=== PATIENT | female | born 1975 | race Caucasian/White ===

== ENCOUNTER 2021-10-14 15:06 | Emergency (ER) | payer BC, SELFPAY ==
--- NOTE | 2021-10-14 15:00 | RT.EKG_ITS ---
APPROVED REPORT Exam: Resting ECG Reason for Exam: chest pain Patient Location: E HR:108 bpm ECG Measurements Heart Rate 108 AXIS NC 137 P 78 QRSd 89 QRS 76 QT 324 T 63 QTc 436 Conclusion Sinus tachycardia...rate> 99. Sinus. No STEMI. I have reviewed and interpreted ECG and agree with software generated interpretation.
--- NOTE | 2021-10-14 15:09 | W.ED.GENAD ---
Discharge Plan Disposition Patient Disposition: HOME Condition: Improving Discharge Details Clinical Impression: Right-sided chest pain Primary Care Provider: Unknown,Unknown ED Provider: Chantelle Delgado Home Meds and New Rx's Prescriptions: Continued lidocaine 5 % Cream 1 applic TOPICAL DAILY RF: 0 loratadine [Claritin] 10 mg Tablet 10 mg PO DAILY RF: 0 fluticasone furoate 27.5 mcg/actuation [place],Suspension 2 spray INTRANASAL DAILY RF: 0 Discharge Instructions Instructions: Chest Pain (ED) Additional Instructions: Drink plenty of fluids and get plenty of rest. Alternate tylenol and motrin as needed and directed for pain. You have been placed on care management list to help arrange for a follow-up appointment with a primary care doctor to establish care and for reevaluation of your symptoms. Return immediately to the emergency department if you develop any worsening or new concerning symptoms. Discharge Data Discharge Physician: Chantelle Delgado Medical Decision Making 45-year-old female presents for a 20-minute episode of aching right-sided chest pain yesterday and a brief episode of fluttering in the left side of her chest that occurred 2 weeks ago. No symptoms at present. EKG on arrival notes a rate of 108, sinus, no STEMI and nondiagnostic. Patient appears anxious. She denies any other associated symptoms during either the episode. She denies any recent illness or fever. She does admit to dyspnea with walking uphill over the past month for moving to [place] but states she is used to flat land and she just moved from [place]. Differential diagnosis includes anxiety, muscle strain, PE, ACS. History and presentation is not consistent with dissection. Will place an IV, bolus IV fluids, screening labs, CT chest and reassess. Labs and imaging reviewed and negative for acute findings. Potassium 3.3, will replete. Troponin negative. TSH within normal limits. CT chest negative for PE. CT chest notes: IMPRESSION: 1. No evidence of acute pulmonary emboli. No evidence of pulmonary infarction.No pleural effusions. 2. No confluent infiltrates nor pleural effusions. However, there are 2 small nodules right lung as described above. Recommend follow-up CT scan in 3 months. Patient informed of results. She is agreeable to stay for repeat troponin. Repeat troponin negative. Patient reassessed and she remains asymptomatic. Patient placed on care management list to help arrange for a follow-up appointment with the primary care doctor to establish care and for reevaluation and consideration for outpatient echocardiogram or registered nurse cardiac if she has return of fluttering or consideration for stress test if chest pain returns. Usual and customary return precautions given prior to discharge. Medical Records Medical records reviewed: Yes I reviewed the patient's medical records. Imaging Data Radiologic Study: Radiologist's impression: CT CHEST PE CTA CLINICAL HISTORY: episode of R sided chest pain, r/o PE. TECHNIQUE: Imaging Protocol: CT angiography of the chest was performed using pulmonary embolus protocol. Multi planar reconstructions were performed. CONTRAST MATERIAL: Intravenous: Omnipaque 350 Contrast volume: 65 cc COMPARISON: No exams were available for comparison FINDINGS: CHEST: PULMONARY ARTERIES: There are no intraluminal filling defects to suggest acute pulmonary emboli. LUNGS: There are no infiltrates nor evidence of pulmonary infarction.. There is a noncalcified subpleural 6 x 4 millimeter nodule in the right lower lobe (series 4/image 26). There is also a 3 millimeter noncalcified nodule in the lateral aspect of the right lower lobe (series 4/image 37). No other focal right lung findings nor pleural effusions. No significant focal findings in the opposite-left lung. MEDIASTINUM: There is no hilar nor mediastinal adenopathy. Visualized thyroid unremarkable. CARDIAC: Heart size is upper normal. There is no pericardial effusion.Caliber of the thoracic aorta is within normal limits. No dissection. There is no significant shift of the interventricular septum. PARTIALLY VISUALIZED UPPERMOST ABDOMEN: No obvious findings OSSEOUS: No significant osseous lesions.. IMPRESSION: 1. No evidence of acute pulmonary emboli. No evidence of pulmonary infarction.No pleural effusions. 2. No confluent infiltrates nor pleural effusions. However, there are 2 small nodules right lung as described above. Recommend follow-up CT scan in 3 months. Lab Data Lab results reviewed: Yes I reviewed the patient's lab results. Labs: Laboratory Tests Range/Units 10/14/21 10/14/21 10/14/21 15:55 15:55 15:55 WBC (4.4-10.8) 10^3/uL 5.58 RBC (3.93-5.22) 10^6/uL 4.64 Hgb (11.2-15.7) g/dL 13.9 Hct (36.0-46.0) % 43.5 MCV (80-95) fL 93.8 MCH (27.0-33.0) pg 30.0 MCHC (32.0-36.0) % 32.0 RDW (11.7-14.6) % 12.8 Plt Count (130-400) 10^3/uL 338 MPV (8.0-11.0) fL 9.1 Immature Gran % 0.4 Neutrophils % 62.0 Lymphocytes % 29.4 Monocytes % 7.0 Eosinophils % 0.7 Basophils % 0.5 Nucleated RBC % % 0 Absolute Neutrophils (1.2-6.7) 10^3/uL 3.46 Absolute Lymphocytes (1.2-3.4) 10^3/uL 1.64 Absolute Monocytes (0.1-0.8) 10^3/uL 0.39 Absolute Eosinophils (0.0-0.7) 10^3/uL 0.04 Absolute Basophils (0.0-0.2) 10^3/uL 0.03 Sodium (136-145) mmol/L 139 Potassium (3.5-5.1) mmol/L 3.3 L Chloride (98-107) mmol/L 103 Carbon Dioxide (21.0-32.0) mmol/L 30.2 Anion Gap (3-11) mmol/L 5.8 BUN (7-18) mg/dL 10 Creatinine (0.55-1.02) mg/dL 0.8 Estimated GFR/1.73 m2 (mL/min/1.73m2) >= 60.00 Glucose (74-106) mg/dL 98 Calcium (8.5-10.1) mg/dL 9.0 Magnesium (1.8-2.4) mg/dL 2.4 Total Bilirubin (0.2-1.0) mg/dL 0.4 AST (15-37) U/L 16 ALT (14-59) U/L 24 Alkaline Phosphatase (46-116) U/L 65 Troponin I (<or=60) ng/L < 50 Total Protein (6.4-8.2) g/dL 8.3 H Albumin (3.4-5.0) g/dL 4.0 TSH (0.36-3.74) uIU/mL 1.82 Range/Units 10/14/21 19:00 WBC (4.4-10.8) 10^3/uL RBC (3.93-5.22) 10^6/uL Hgb (11.2-15.7) g/dL Hct (36.0-46.0) % MCV (80-95) fL MCH (27.0-33.0) pg MCHC (32.0-36.0) % RDW (11.7-14.6) % Plt Count (130-400) 10^3/uL MPV (8.0-11.0) fL Immature Gran % Neutrophils % Lymphocytes % Monocytes % Eosinophils % Basophils % Nucleated RBC % % Absolute Neutrophils (1.2-6.7) 10^3/uL Absolute Lymphocytes (1.2-3.4) 10^3/uL Absolute Monocytes (0.1-0.8) 10^3/uL Absolute Eosinophils (0.0-0.7) 10^3/uL Absolute Basophils (0.0-0.2) 10^3/uL Sodium (136-145) mmol/L Potassium (3.5-5.1) mmol/L Chloride (98-107) mmol/L Carbon Dioxide (21.0-32.0) mmol/L Anion Gap (3-11) mmol/L BUN (7-18) mg/dL Creatinine (0.55-1.02) mg/dL Estimated GFR/1.73 m2 (mL/min/1.73m2) Glucose (74-106) mg/dL Calcium (8.5-10.1) mg/dL Magnesium (1.8-2.4) mg/dL Total Bilirubin (0.2-1.0) mg/dL AST (15-37) U/L ALT (14-59) U/L Alkaline Phosphatase (46-116) U/L Troponin I (<or=60) ng/L < 50 Total Protein (6.4-8.2) g/dL Albumin (3.4-5.0) g/dL TSH (0.36-3.74) uIU/mL ECG Data Attestation: I personally reviewed and interpreted this ECG (s) as follows: Interpretation: Rate of 108, sinus, no acute ST elevation or depression. ID [id number]. QRS 89. QTc 436. HPI General Mode of arrival: ambulatory. Date/Time Provider Initiated Documentation: 10/14/21 15:09. Limitations to Documentation: no limitations. Information obtained by: patient. HPI Narrative: Patient is a 45-year-old female with with no significant past medical history other than taking control presents for a brief episode of fluttering in her chest that occurred 2 weeks ago and a 20-minute episode of right-sided dull aching chest pain that occurred last night. Patient states she has not seen any provider for her symptoms yet and called [facility] as she recently moved here and does not have a pcp and advised her to come to the emergency department. Patient states she was sitting at a table 2 weeks ago when she felt a fluttering in the left side of her chest. She states it lasted for 1 second and then resolved. She denies any associated symptoms with including shortness of breath, chest pain, dizziness, nausea, vomiting. She states she had no additional episodes since then. Patient states she had been feeling fine until yesterday when she was sitting at her table again and developed a mild right-sided ache in her chest which lasted approximately 20 minutes and then resolved. She states the pain at its most with 10/28. She denies any radiation of pain, aggravating or alleviating factors, shortness of breath, dizziness, nausea or vomiting with this episode last night. She denies any recent illness including fever, cough, vomiting, diarrhea, new prescription or [id number] medications. Patient currently denies any symptoms. Related Data Home Medications Medication Instructions Recorded Confirmed fluticasone furoate 2 spray INTRANASAL DAILY 10/14/21 10/14/21 lidocaine 1 applic TOPICAL DAILY 10/14/21 10/14/21 loratadine [Claritin] 10 mg PO DAILY 10/14/21 10/14/21 Allergies Allergy/AdvReac Type Severity Reaction Status Date / Time No Known Allergies Allergy Unverified 10/14/21 15:15 Review of Systems All systems reviewed & are unremarkable except as noted in HPI and below Constitutional Constitutional: Reports as per HPI, Denies chills and Denies fever(s) Eyes Eyes: Denies blurry vision ENT Ears, Nose, Mouth, and Throat: Denies dizziness, Denies sore throat and Denies throat swelling Cardiovascular Cardiovascular: Reports chest pain, Reports palpitations and Denies dyspnea Respiratory Respiratory: Denies cough and Denies dyspnea Gastrointestinal Gastrointestinal: Denies abdominal pain, Denies diarrhea and Denies vomiting Genitourinary Genitourinary: Denies hematuria and Denies dysuria Musculoskeletal Musculoskeletal: Denies back pain and Denies numbness Integumentary/Breasts Skin/Breast: Denies lesions and Denies rash Neurologic Neurologic: Denies dizziness, Denies localized weakness and Denies numbness Endocrine Endocrine: Reports palpitations Allergic/Immunologic Allergic/Immunologic: Denies throat swelling PFSH All Active Problems (Updated 10/14/21 @ 19:42 by Chantelle Delgado DO) Right-sided chest pain (Acute) Medical History (Updated 10/14/21 @ 19:42 by Chantelle Delgado DO) Seasonal allergies Surgical History (Updated 10/14/21 @ 15:45 by Chantelle Delgado DO) Hx of cholecystectomy Social History Smoking/Tobacco Use Status: Never Smoking risk assessment performed?: Yes Alcohol Intake: never Drug use: Never Substance use type: does not use Do you feel safe at home: Yes Do you feel safe in your relationship?: Yes Exam Const General: cooperative, healthy appearing and no acute distress HENMT Head: normal to inspection Face and sinus: normal facial exam Eyes General: appearance normal, both eyes and all related structures EOM: EOM intact bilaterally Neck Neck: normal visual inspection and No submandibular swelling Lymphatic: no lymphadenopathy noted Chest Chest: normal inspection of the chest and no tenderness Resp Effort & Inspection: normal respiratory effort and able to speak in complete sentences Auscultation: clear to auscultation bilaterally Cardio Rate: tachycardic Rhythm: regular rhythm GI Inspection: normal to inspection Palpation: soft, not firm, not rigid and nontender Auscultation: normal bowel sounds Skin General skin exam: no rashes or lesions noted Neuro General: patient alert, patient awake and patient oriented x3 Cognition: normal cognition Speech: speech normal Motor: muscle tone normal throughout Sensory Exam: no sensory deficits noted Extrem General: normal to inspection, full ROM, capillary refill normal, no calf tenderness bilaterally and no edema Psych Appearance: grossly normal Mental Status: mental status grossly normal Speech and Movement: speech and movement normal Affect: normal affect
[2021-10-14 15:11] VITALS: BP 165/83; PULSE 117; RESP 16; TEMP 36.7; O2SAT 100
--- NOTE | 2021-10-14 15:30 | DI.CT_ITS ---
Exam(s) CT CHEST PE CTA EXAM: CT CHEST PE CTA CLINICAL HISTORY: episode of R sided chest pain, r/o PE. TECHNIQUE: Imaging Protocol: CT angiography of the chest was performed using pulmonary embolus arya col. Multi planar reconstructions were performed. CONTRAST MATERIAL: Intravenous: Omnipaque 350 Contrast volume: 65 cc COMPARISON: No exams were available for comparison FINDINGS: CHEST: PULMONARY ARTERIES: There are no intraluminal filling defects to suggest acute pulmonary emboli. LUNGS: There are no infiltrates nor evidence of pulmonary infarction.. There is a noncalcified subple ural 6 x 4 millimeter nodule in the right lower lobe (series 4/image 26). There is also a 3 millimet er noncalcified nodule in the lateral aspect of the right lower lobe (series 4/image 37). No other f ocal right lung findings nor pleural effusions. No significant focal findings in the opposite-left l noemí. MEDIASTINUM: There is no hilar nor mediastinal adenopathy. Visualized thyroid unremarkable. CARDIAC: Heart size is upper normal. There is no pericardial effusion.Caliber of the thoracic aorta is within normal limits. No dissection. There is no significant shift of the interventricular septum . PARTIALLY VISUALIZED UPPERMOST ABDOMEN: No obvious findings OSSEOUS: No significant osseous lesions.. IMPRESSION: 1. No evidence of acute pulmonary emboli. No evidence of pulmonary infarction.No pleural effusions. 2. No confluent infiltrates nor pleural effusions. However, there are 2 small nodules right lung as described above. Recommend follow-up CT scan in 3 months. Report called by myself to the ER RADIATION DOSE DELIVERED: 287.58mGy.cm Total DLP DATA REPOSITORY: All CT scans at this facility are submitted to the National Radiology Data Registry (NRDR) Dose Index Registry (DIR) with the [employer] (ACR). RADIATION OPTIMIZATION: All CT scans at this facility use at least one of these dose optimization te chniques: automated exposure control; mA and/or kV adjustment per patient size (includes targeted exa ms where dose is matched to clinical indication); or iterative reconstruction.
[2021-10-14] MEDS: Omnipaque 350 MG/ML 100 ML BTL IJ (15:59)
[2021-10-14 16:06] LABS: Abs Immature Grans 0.02 10^3/uL (0.0-0.06); Absolute Basophil Count 0.03 10^3/uL (0.0-0.2); Absolute Eosinophil Count 0.04 10^3/uL (0.0-0.7); Absolute Lymphocyte Count 1.64 10^3/uL (1.2-3.4); Absolute Monocyte Count 0.39 10^3/uL (0.1-0.8); Absolute Neutrophil Count 3.46 10^3/uL (1.2-6.7); Basophils % 0.5; Eosinophils % 0.7; HCT 43.5 % (36.0-46.0); HGB 13.9 g/dL (11.2-15.7); Immature Grans % 0.4; Lymphocytes % 29.4; MCV 93.8 fL (80-95); MPV 9.1 fL (8.0-11.0); Nucleated RBC 0 %; Platelet Count 338 10^3/uL (130-400); RBC 4.64 10^6/uL (3.93-5.22); RDW 12.8 % (11.7-14.6); WBC 5.58 10^3/uL (4.4-10.8)
[2021-10-14 16:16] VITALS: RESP 16
[2021-10-14] MEDS: Normal Saline 1,000 ML 1000 ML IV (16:16)
[2021-10-14 16:54] LABS: ALT 24 U/L (14-59); AST 16 U/L (15-37); Alkaline Phosphatase 65 U/L (46-116); Anion Gap 5.8 mmol/L (3-11); BUN 10 mg/dL (7-18); Bilirubin, Total 0.4 mg/dL (0.2-1.0); CO2 30.2 mmol/L (21.0-32.0); CREATININE 0.8 mg/dL (0.55-1.02); Chloride 103 mmol/L (98-107); Glucose 98 mg/dL (74-106); Magnesium 2.4 mg/dL (1.8-2.4); Potassium 3.3 mmol/L (3.5-5.1); Sodium 139 mmol/L (136-145); Total Protein 8.3 g/dL (6.4-8.2)
[2021-10-14 16:58] LABS: Troponin I < 50 ng/L (<or=60)
[2021-10-14 17:00] LABS: TSH (W/Ref FT4) 1.82 uIU/mL (0.36-3.74)
[2021-10-14 17:37] VITALS: BP 122/79; PULSE 87; RESP 16; O2SAT 100
[2021-10-14] MEDS: Potassium Chloride 20 MEQ TABCR 40 MEQ PO (18:01)
[2021-10-14 19:25] LABS: Troponin I < 50 ng/L (<or=60)
--- NOTE | 2021-10-14 19:44 | NUR.NOTE ---
Referral to Care Management to establish PCP and chest pain f/u in 1-2wks.Nursing Note:
--- NOTE | 2021-10-15 12:21 | PDOC.ERCMACT ---
- If Service Date Differs Date of service: 10/15/21 Time of Service: 12:21 Care Management Activity Note Annie is seen in the ED for chest pain. At the request of ED provider, CM coordinates a referral to WARREN Blandon, of [facility], on-call provider, to assist Annie in obtaining a follow up appointment and in establishing care with a PCP.
== END 2021-10-14 19:53 | disposition home or self-care (01) ==
PROVIDERS: Emergency Provider Physician Assistant
DX: R07.9 Chest pain, unspecified (principal); R00.2 Palpitations; R06.00 Dyspnea, unspecified; E87.6 Hypokalemia
CPT/HCPCS: 36415; 71275; 80053; 81025; 93005; 96360; 99285; 83735; 84443; 84484; 85025; 93010; 99284; J3490

== ENCOUNTER → 2022-03-04 01:14 | Outpatient (CLI) | payer BC, SELFPAY ==
--- NOTE | 2022-03-04 08:00 | DI.MAMMO_ITS ---
Exam(s) MAMMO SCREENING EXAM: MAMMO SCREENING CLINICAL HISTORY: screening. TECHNIQUE: Bilateral full field digital CC and MLO mammographic images were obtained with 3D tomosyn thesis and utilizing computer aided detection (CAD). COMPARISON: Prior outside mammograms were reviewed, the most recent being July 2020.. This patient has apparently had prior excisional biopsy of a fibroadenoma approximately 20 years ago. Does not state which breast. FINDINGS: The fibroglandular tissue is again noted be dense, this somewhat decreasing the sensitivity mammogram for finding in underlying lesions. Asymmetry in the size of the breast is again noted, right being slightly smaller than the left, perha ps related to prior excisional biopsy. There are no new obvious spiculated masses nor malignant-appearing microcalcification groups. Multip le benign-appearing punctate microcalcifications seen in the superior aspect of the left breast. The re also benign macro calcifications noted bilaterally There is no new architectural distortion or skin thickening-retraction. IMPRESSION: Dense bilateral fibroglandular tissue. No obvious radiographic evidence of malignancy. Given the density of this patient's fibroglandular tissue and past history of fibroadenoma removal, i t may be prudent to perform screening bilateral breast ultrasound. BI-RADS Category 2 - Benign Findings Breast Density - Category C - Heterogeneously dense Breast density Category C or D implies that the patient has dense breast tissue. Dense breast tissue can make it harder to find cancer on a mammogram. Dense breast tissue is also associated with an incr eased risk of breast cancer. This information about the result of the mammogram report was provided to the patient to raise their awareness. Use this report when you speak with the patient about their risks for breast cancer, which includes their family history. At that time, you may recommend additional screening tests (Ultrasoun d or MRI) as these tests may add significant information. A negative radiographic report should not delay biopsy if a dominant or clinically suspicious mass is present. Up to ten percent of cancers are not identified on mammography. A negative report may reinforce clinical impression. Adenosis and dense breasts may obscure an underlying neoplasm. False positive reports average 6 to 10%. Patient will receive a letter notifying them of these results.
== END ==
PROVIDERS: PCP Family Medicine; Visit Provider Nurse Practitioner Family
DX: Z12.31 Encounter for screening mammogram for malignant neoplasm of breast (principal); Z98.890 Other specified postprocedural states; N64.59 Other signs and symptoms in breast
CPT/HCPCS: 77063; 77067

== ENCOUNTER 2022-04-17 02:27 | Outpatient (CLI) | payer BC, SELFPAY ==
[2022-04-17 12:19] LABS: ALT 24 U/L (14-59); AST 18 U/L (15-37); Albumin 3.6 g/dL (3.4-5.0); Alkaline Phosphatase 75 U/L (46-116); Anion Gap 5.6 mmol/L (3-11); BUN 13 mg/dL (7-18); Bilirubin, Total 0.6 mg/dL (0.2-1.0); CO2 30.4 mmol/L (21.0-32.0); CREATININE 0.6 mg/dL (0.55-1.02); Calcium 8.8 mg/dL (8.5-10.1); Chloride 111 mmol/L (98-107); Glucose 90 mg/dL (74-106); Potassium 3.9 mmol/L (3.5-5.1); Sodium 147 mmol/L (136-145)
== END 2022-04-17 02:28 | disposition home or self-care (01) ==
LOC: LBO 02:27
PROVIDERS: PCP Family Medicine; Visit Provider Family Medicine
DX: Z00.00 Encounter for general adult medical examination without abnormal findings (principal)
CPT/HCPCS: 36415; 80053

== ENCOUNTER 2022-06-05 04:10 | Outpatient (CLI) | payer BC, SELFPAY ==
[2022-06-05 12:42] LABS: Abs Immature Grans 0.02 10^3/uL (0.0-0.06); Absolute Basophil Count 0.03 10^3/uL (0.0-0.2); Absolute Eosinophil Count 0.11 10^3/uL (0.0-0.7); Absolute Lymphocyte Count 1.53 10^3/uL (1.2-3.4); Absolute Monocyte Count 0.83 10^3/uL (0.1-0.8); Absolute Neutrophil Count 4.58 10^3/uL (1.2-6.7); Basophils % 0.4; Eosinophils % 1.5; HCT 41.3 % (36.0-46.0); HGB 13.7 g/dL (11.2-15.7); Immature Grans % 0.3; Lymphocytes % 21.5; MCH 30.4 pg (27.0-33.0); MCHC 33.2 % (32.0-36.0); MCV 92 fL (80-95); MPV 9.8 fL (8.0-11.0); Monocytes % 11.7; Neutrophils % 64.6; Platelet Count 241 10^3/uL (130-400); RBC 4.51 10^6/uL (3.93-5.22); RDW 13.2 % (11.7-14.6)
[2022-06-05 13:19] LABS: Vitamin B12 383 pg/mL (193-986)
[2022-06-06 10:52] LABS: Lyme Ab w Rflx to Lyme Confirm Negative (Negative)
[2022-06-08 10:30] LABS: Anaplasma phagocytophilum Negative (Negative); B. miyamotoi PCR Negative (Negative); Babesia divergens/MO-1 Negative (Negative); Babesia duncani Negative (Negative); Babesia microti Negative (Negative); Ehrlichia chaffeensis Negative (Negative); Ehrlichia ewingii/canis Negative (Negative); Ehrlichia muris eauclairensis Negative (Negative)
== END 2022-06-05 04:11 | disposition home or self-care (01) ==
LOC: LOS 04:10
PROVIDERS: PCP Family Medicine; Visit Provider Physician Assistant
DX: R20.2 Paresthesia of skin (principal)
CPT/HCPCS: 36415; 87798; 82607; 84443; 85025; 86618

== ENCOUNTER → 2022-06-27 00:24 | Outpatient (CLI) | payer BC, SELFPAY ==
--- OUTSIDE RECORDS SUMMARY | 2022-06-27 00:28 | XMS_ITS | Encounter Summary ---
:1975 Demographics Home Phone Preferred Language Unknown Marital Status Unknown Religion Affiliation Unknown Race Unknown Ethnic Group Unknown Author Organization [facility] Address [address] [place] [address] Care Team Providers Name Role Phone Unavailable Primary Care Provider Unavailable Encounter Details Date Type Department Care Team Description 06/05/2022 Lab Requisition [facility] Outr Resulting Lab, Pathology & Laboratory Provider [facility] [address] [place] [address] Social History Tobacco Use Types Packs/Day Years Used Date Never Assessed Sex Assigned at Date Recorded Not on file documented as of this encounter Plan of Treatment Not on filedocumented as of this encounter Procedures Procedure Name Priority Date/Time Associated Diagnosis Comme nts LYME AB Routine 06/05/2022 11:23 EDT Results for this procedure are i n the results section . documented in this encounter Results LYME AB (06/05/2022 11:23 EDT) Pathologist Sig nature Lyme Ab Negative Negative [facility] Specimen Blood - Venous blood (substance) Performing Organization Address City/State/ZIP Code Phon e Number [facility] [address] [place] [address] SERVICES documented in this encounter Visit Diagnoses Not on filedocumented in this encounter
--- OUTSIDE RECORDS SUMMARY | 2022-06-27 00:28 | XMS_ITS | Clinical Summary ---
:1975 Demographics Home Phone Preferred Language Unknown Marital Status Unknown Christian Affiliation Unknown Race Unknown Ethnic Group Unknown Author Organization [facility] Address [address] [place], [place] [id number] Care Team Providers Name Role Phone Unavailable Primary Care Provider Unavailable Encounters Date Type Specialty Care Team Description 06/05/2022 Lab Requisition Clinical Laboratory Outr Resulting Lab , Provider from Last 3 Months Social History Tobacco Use Types Packs/Day Years Used Date Never Assessed Sex Assigned at Date Recorded Not on file Plan of Treatment Not on file Procedures Procedure Name Priority Date/Time Associated Diagnosis Comme nts LYME AB Routine 06/05/2022 11:23 EDT Results for this procedure are i n the results section . from Last 3 Months Results LYME AB (06/05/2022 11:23 EDT) Pathologist Sig nature Lyme Ab Negative Negative [facility] Specimen Blood - Venous blood (substance) Performing Organization Address City/State/ZIP Code Phon e Number [facility] [address] [place] [address] SERVICES from Last 3 Months
--- NOTE | 2022-06-27 07:00 | DI.RAD_ITS ---
Exam(s) XR CERVICAL SP COMP W FLEX/EXT EXAM: XR CERVICAL SP COMP W FLEX/EXT CLINICAL HISTORY: increased numbness,TINGLING RT UPPER EXT,R20.0,R20.2. TECHNIQUE: 2D digital imaging was performed. Seven images were obtained. AP, odontoid, flexion, exte nsion, lateral and bilateral oblique images were obtained. COMPARISON: No exams were available for comparison FINDINGS: The odontoid is intact. The lateral masses are well aligned. There is normal alignment of the cervi vanessa spine. Small endplate osteophytes and disc space narrowing is seen at C5-6 and C6-C7. No acute fr acture or subluxation is present. No significant neural foraminal stenosis is present. The cervical thoracic junction is well maintained. The prevertebral soft tissues are unremarkable. Lung apices ar e clear. No significant subluxation with flexion or extension. IMPRESSION: Mild degenerative changes in the cervical spine. DATA REPOSITORY: RADIATION DOSE DELIVERED:
--- NOTE | 2022-06-27 07:00 | DI.RAD_ITS ---
Exam(s) XR LUMBAR SPINE COMP W FLEX/EX EXAM: XR LUMBAR SPINE COMP W FLEX/EX CLINICAL HISTORY: increased tingling,NUMBNESS RT LOWER EXTREMITY,R20.0,R20.2. TECHNIQUE: 2D digital imaging was performed of the lumbar spine. Seven images were obtained. AP, l ateral, flexion, extension, right oblique, left oblique and L5-S1 spot views were obtained. COMPARISON: No exams were available for comparison FINDINGS: BONES: No fracture or destructive lesion. Vertebral bodies are unremarkable. No facet hypertrophy chidi ntified. There is partial lumbarization of S1. DISKS: Intervertebral disc spaces are maintained. ALIGNMENT: Lumbar spinal alignment is within normal limits. No spondylolysis or spondylolisthesis. N o significant subluxation with flexion or extension. SOFT TISSUE: Normal. IMPRESSION: Unremarkable radiographs of the lumbar spine. DATA REPOSITORY: RADIATION DOSE DELIVERED:
--- NOTE | 2022-06-27 09:45 | DI.RAD_ITS ---
Exam(s) XR THORACIC SPINE COMPLETE EXAM: XR THORACIC SPINE COMPLETE CLINICAL HISTORY: increased tingling rt lower ext, numbness, R20.0, R20.2. TECHNIQUE: 2D digital imaging was performed of the thoracic spine. Three views were obtained. AP, swimmer's and lateral views were obtained. COMPARISON: No exams were available for comparison FINDINGS: BONES: There is no fracture or destructive lesion. The vertebral bodies and posterior elements are un remarkable. DISKS:Alignment is within normal limits. Interverebral disc spaces are maintained. SOFT TISSUE: Visualized lungs are clear. IMPRESSION: Unremarkable radiographs of the thoracic spine. DATA REPOSITORY: RADIATION DOSE DELIVERED:
== END ==
PROVIDERS: PCP Family Medicine; Visit Provider Nurse Practitioner Family
DX: R20.0 Anesthesia of skin (principal); R20.2 Paresthesia of skin; M47.812 Spondylosis without myelopathy or radiculopathy, cervical region
CPT/HCPCS: 72114; 72052; 72072

== ENCOUNTER 2022-06-27 15:22 | Outpatient (CLI) | payer BC, SELFPAY ==
[2022-06-27 10:28] LABS: Abs Immature Grans 0.01 10^3/uL (0.0-0.06); Absolute Basophil Count 0.04 10^3/uL (0.0-0.2); Absolute Lymphocyte Count 1.98 10^3/uL (1.2-3.4); Absolute Monocyte Count 0.46 10^3/uL (0.1-0.8); Absolute Neutrophil Count 4.08 10^3/uL (1.2-6.7); Basophils % 0.6; ESR 1 mm/hr (0-20); Eosinophils % 1.5; HCT 40.3 % (36.0-46.0); HGB 13.6 g/dL (11.2-15.7); Immature Grans % 0.1; Lymphocytes % 29.7; MCH 30.5 pg (27.0-33.0); MCHC 33.7 % (32.0-36.0); MCV 90 fL (80-95); MPV 9.6 fL (8.0-11.0); Monocytes % 6.9; Neutrophils % 61.2; Platelet Count 277 10^3/uL (130-400); RBC 4.46 10^6/uL (3.93-5.22); RDW 13.1 % (11.7-14.6); RDW-SD 43.8 fL; WBC 6.67 10^3/uL (4.4-10.8)
[2022-06-27 19:35] LABS: CRP, High Sensitivity 2.68 mg/L (See Note)
[2022-06-30 14:29] LABS: ANA Interpretation Positive (Negative); ANA Titer Pattern 1:80 Speckled
== END 2022-06-27 15:23 | disposition home or self-care (01) ==
LOC: LBO 15:22
PROVIDERS: PCP Family Medicine; Visit Provider Nurse Practitioner Family
DX: R20.0 Anesthesia of skin (principal); R20.2 Paresthesia of skin; D72.821 Monocytosis (symptomatic)
CPT/HCPCS: 36415; 85652; 86141; 85025; 86038

== ENCOUNTER 2022-06-30 09:53 | Outpatient (REF) | payer BC, SELFPAY ==
--- NOTE | 2022-06-30 09:30 | PAPFT_PTH ---
PATIENT: Annie Waterman LOC: [facility] U#:[id number] AGE/SX: 46/F ROOM: RE06/30/[address]: Dedra Smith NP : 1975 BED: DIS: 06/30/2022 SPEC #: [id number] RECD: 06/30/22 13:10 STATUS: DURAN REQ #: [id number] АЛЕКСАНДР: 06/30/22 09:[address]: Dedra Smith NP DEPT: [facility] Cytology RECD BY: Neena Kinsey ENTERED: 06/30/22 13:11 SP TYPE: PAPFT OTHR DR: Nikki Macias Tissues: 1 - CX/ENDOCX FOR PAP SMEARS Procedures: PAP THIN PREP/UVM Screening HPV DNA PROBE Comments: [id number]
== END 2022-06-30 09:54 | disposition home or self-care (01) ==
LOC: LBN 09:53
PROVIDERS: PCP Family Medicine; Visit Provider Nurse Practitioner Women's Health
DX: Z12.4 Encounter for screening for malignant neoplasm of cervix (principal); Z11.51 Encounter for screening for human papillomavirus (HPV)
CPT/HCPCS: 88142; 87624

== ENCOUNTER 2022-08-27 15:52 | Outpatient (REF) | payer BC, SELFPAY ==
[2022-08-27 21:17] LABS: PROTEIN < 6.0 mg/dL (0.0-11.9)
== END 2022-08-27 15:53 | disposition home or self-care (01) ==
LOC: LBN 15:52
PROVIDERS: PCP Family Medicine; Visit Provider Family Medicine
DX: I73.00 Raynaud's syndrome without gangrene (principal); R20.0 Anesthesia of skin; R20.2 Paresthesia of skin
CPT/HCPCS: 84156

== ENCOUNTER 2022-09-05 11:05 | Outpatient (CLI) | payer BC, SELFPAY ==
[2022-09-05 08:54] LABS: ALT 14 U/L (14-59); AST 11 U/L (15-37); Albumin 3.7 g/dL (3.4-5.0); Alkaline Phosphatase 84 U/L (46-116); Anion Gap 6.4 mmol/L (3-11); BUN 11 mg/dL (7-18); Bilirubin, Total 0.7 mg/dL (0.2-1.0); CO2 29.6 mmol/L (21.0-32.0); CREATININE 0.7 mg/dL (0.55-1.02); Calcium 9.1 mg/dL (8.5-10.1); Chloride 103 mmol/L (98-107); Glucose 110 mg/dL (74-106); Potassium 3.5 mmol/L (3.5-5.1); Sodium 139 mmol/L (136-145); Total Protein 7.2 g/dL (6.4-8.2)
== END 2022-09-05 11:06 | disposition home or self-care (01) ==
LOC: LBO 11:07
PROVIDERS: PCP Family Medicine; Visit Provider Family Medicine
DX: I73.00 Raynaud's syndrome without gangrene (principal); R20.0 Anesthesia of skin; R20.2 Paresthesia of skin; Z00.00 Encounter for general adult medical examination without abnormal findings
CPT/HCPCS: 36415; 80053

== ENCOUNTER 2022-12-23 01:40 | Outpatient (CLI) | payer BC, SELFPAY ==
--- NOTE | 2022-12-23 07:45 | DI.MRI_ITS ---
Exam(s) MR CERVICAL SPINE WO/W EXAM: MR CERVICAL SPINE WO/W CLINICAL HISTORY: ? MS, PARESTHESIAS,R20.2 TECHNIQUE: Multiplanar multisequence MRI of the cervical spine was performed without intravenous con trast. COMPARISON: No exams were available for comparison FINDINGS: CERVICOMEDULLARY JUNCTION: Intact with no evidence of cerebellar tonsillar ectopia. No obvious abnor mality of the odontoid process. No evidence of Chiari 1 malformation. CERVICAL SPINAL CORD: There is no abnormal signal in the cervical spinal cord and no evidence of foca l cord atrophy nor focal cord swelling. No abnormal enhancement in the cervical spinal cord nor in t he epidural space. OSSEOUS:There are no cervical fractures evident. No significant osseous lesions in the cervical vert ebrae. Some mild straightening of the cervical curvature is noted. INDIVIDUAL LEVELS: C2-3: No disc herniation nor central canal stenosis. No foraminal stenosis. No facet arthropathy. C3-4: No disc herniation nor central canal stenosis.No facet arthropathy. No foraminal stenosis. C4-5: No disc herniation nor central canal stenosis.No facet arthropathy. No foraminal stenosis C5-6: Disc space narrowing. Posteriorly there is mild central subligamentous disc bulge. This sligh tly indents the anterior thecal sac but not the cord. Central canal dimensions are within normal ha its at this level. There is no abnormal signal in the cord at this level. No significant facet arth ropathy at this level. No significant foraminal stenosis. C6-7: Mild decreased disc height. There is small left-sided Luschka joint osteophytes. No prominent disc herniation. No central canal stenosis. No prominent foraminal stenosis. Mild side facet arth ropathy. C7-T1: No disc herniation nor central canal stenosis. No facet arthropathy.No foraminal stenosis. IMPRESSION: 1. Mild findings at C5-6 and C6-7 levels are described above. No prominent disc herniations. No melissa tral canal stenosis. No prominent foraminal stenosis. 2. No evidence of abnormal signal in the cervical spinal cord. No abnormal enhancement. No evidence of demyelinating disease. No evidence of syringomyelia. 3. DATA REPOSITORY:
--- NOTE | 2022-12-23 07:45 | DI.MRI_ITS ---
Exam(s) MR BRAIN WO/W EXAM: MR BRAIN WO/W CLINICAL HISTORY: ? MS,PARESTHESIAS,R20.2 TECHNIQUE: Multiplanar multisequence MRI of the brain was performed. Both noninfused and contrast i nfused sequences were performed. IV Contrast injected was cc Dotarem. COMPARISON: MR [facility] MR BRAIN WO CONTRAST [id number] from 10/29/2013 FINDINGS: CEREBRAL PARENCHYMA: No evidence of intracranial hemorrhage, mass effect nor shift of midline structu re. No extraaxial fluid collections. Ventricles are not enlarged nor shifted. There is no significant focal signal abnormality in the cerebellar hemispheres nor within the ori, m idbrain, and thalami. There is no abnormal signal abnormality in the periventricular white matter. No evidence of demyelin ating disease. DWI: No areas of restricted diffusion to suggest acute ischemic event. SWI: No microhemorrhages evident. There are no ring enhancing lesions in the brain. There is no abnormal meningeal enhancement. PITUITARY GLAND: No mass nor parasellar abnormality. No obvious abnormality in the cavernous sinuses. FLOW VOIDS: The expected flow void are noted. No evidence of obvious aneurysm nor obvious vascular ma lformation. PARANASAL SINUSES: The visualized paranasal sinuses appear unremarkable. ORBITS: No obvious abnormal findings. IMPRESSION: 1. No significant intracranial findings on this MRI scan of the brain. 2. No abnormal enhancing intracranial findings. There are no ring enhancing lesions in the brain and there is no abnormal meningeal enhancement. 3. There is no white matter signal abnormality to suggest the presence of demyelinating disease. DATA REPOSITORY:
[2022-12-23] MEDS: Normal Saline Flush 10 ML SYR IVP (14:51)
[2022-12-23] MEDS: Gadoterate meglumine 20 ML SYRINGE 13 ML IVP (14:51)
== END 2022-12-23 02:00 ==
PROVIDERS: PCP Family Medicine; Visit Provider Psychiatry & Neurology Neurology
DX: R20.2 Paresthesia of skin (principal); M50.322 Other cervical disc degeneration at C5-C6 level; M50.323 Other cervical disc degeneration at C6-C7 level
CPT/HCPCS: 70553; 72156

== ENCOUNTER 2023-01-09 02:03 | Outpatient (CLI) | payer BC, SELFPAY ==
[2023-01-09 13:50] LABS: Hemoglobin A1C 5.4 % (<5.7)
[2023-01-09 15:36] LABS: Vitamin B12 475 pg/mL (193-986)
[2023-01-12 13:44] LABS: Copper, Serum 89 mcg/dL (77-206); Zinc, S 68 mcg/dL (60-106)
[2023-01-13 00:01] LABS: Pyridoxal 5-Phosphate (PLP), P 10 mcg/L (5-50)
[2023-01-14 00:06] LABS: Thiamine (Vitamin B1), WB 118 nmol/L (70-180)
== END 2023-01-09 02:04 | disposition home or self-care (01) ==
LOC: LOS 02:03
PROVIDERS: PCP Family Medicine; Visit Provider Psychiatry & Neurology Neurology with Special Qualifications in Child Neurology
DX: R20.2 Paresthesia of skin (principal)
CPT/HCPCS: 36415; 82525; 84630; 82607; 83036; 84207; 84425

== ENCOUNTER 2023-02-02 21:08 | Outpatient (REF) | payer BC, SELFPAY | END 2023-02-02 21:09 | disposition home or self-care (01) | LOC: LBN 21:08 | PROVIDERS: PCP Family Medicine; Visit Provider Nurse Practitioner Family | DX: R35.0 Frequency of micturition (principal) | CPT/HCPCS: 87086 ==

== ENCOUNTER 2023-02-10 03:04 | Outpatient (CLI) | payer BC, SELFPAY ==
[2023-02-11 13:14] LABS: Albumin 61.3 % (55.8-66.1); Total Protein 6.5 g/dL (6.3-8.2)
== END 2023-02-10 03:05 | disposition home or self-care (01) ==
LOC: LOS 03:04
PROVIDERS: PCP Family Medicine; Visit Provider Psychiatry & Neurology Neurology with Special Qualifications in Child Neurology
DX: R20.2 Paresthesia of skin (principal)
CPT/HCPCS: 36415; 84165

== ENCOUNTER 2023-05-20 00:47 | Outpatient (CLI) | payer BC, SELFPAY ==
--- NOTE | 2023-05-20 07:30 | DI.MAMMO_ITS ---
Exam(s) MAMMO SCREENING EXAM: MAMMO SCREENING CLINICAL HISTORY: screening, Z12.39. TECHNIQUE: Bilateral full field digital CC and MLO mammographic images were obtained with 3D tomosyn thesis and utilizing computer aided detection (CAD). COMPARISON: Prior mammograms were reviewed. This patient apparently has had prior excisional biopsy of a fibroadenoma in the right breast approxi mately 21 years ago. FINDINGS: Fibroglandular tissue pattern is again noted be quite dense. Right breast is slightly smaller than the left and I assume that this is is related to the prior exci alina or biopsy. There are no new obvious spiculated masses nor malignant appearing microcalcification groups. Benign-appearing microcalcifications the left breast are again noted. There is no significant architectural distortion nor skin thickening-retraction. IMPRESSION: Very dense bilateral fibroglandular tissue. No obvious radiographic evidence of malignancy. Given the density of this patient's fibroglandular tissue and previous breast history it may be prude nt to perform bilateral screening breast ultrasound. BI-RADS Category 2 - Benign Findings Breast Density - Category D - Extremely dense Breast density Category C or D implies that the patient has dense breast tissue. Dense breast tissue can make it harder to find cancer on a mammogram. Dense breast tissue is also associated with an incr eased risk of breast cancer. This information about the result of the mammogram report was provided to the patient to raise their awareness. Use this report when you speak with the patient about their risks for breast cancer, which includes their family history. At that time, you may recommend additional screening tests (Ultrasoun d or MRI) as these tests may add significant information. A negative radiographic report should not delay biopsy if a dominant or clinically suspicious mass is present. Up to ten percent of cancers are not identified on mammography. A negative report may reinforce clinical impression. Adenosis and dense breasts may obscure an underlying neoplasm. False positive reports average 6 to 10%. Patient will receive a letter notifying them of these results.
== END 2023-05-20 01:07 ==
PROVIDERS: PCP Family Medicine; Visit Provider Family Medicine
DX: Z12.31 Encounter for screening mammogram for malignant neoplasm of breast (principal)
CPT/HCPCS: 77063; 77067

== ENCOUNTER 2024-01-29 08:17 | Day surgery (SDC) | payer BC, SELFPAY ==
--- NOTE | 2024-01-28 15:37 | W.PM.DSUDISC ---
Date of service: 01/29/24 Time of Service: 10:58 Discharge Plan Disposition Patient Disposition: Home Condition: Good Discharge Details Reason For Visit: colon scope Attending Provider: Makenna Ramirez Primary Care Provider: Nikki Macias Home Meds and New Rx's Prescriptions: Continued Mirena 20 mcg/24 hours (7 yrs) 52 mg intrauterine device 1 device intrauterine ONCE Qty: 1 0RF Sarna Original 0.5-0.5 % lotion 1 applic topical BID metronidazole 0.75 % cream 1 applic topical BID Qty: 45 12RF lidocaine 5 % cream 1 applic TOPICAL DAILY Qty: 30 5RF cholestyramine (with sugar) 4 gram powder 1 pwd PO DAILY Qty: 368.76 0RF Hold Instructions: Home Medication placed on hold at Doctor's office Rx Instructions: administer w/meal; avoid other meds within 1hr before or 4-6hr after dose ivermectin [Soolantra] 1 % cream 1 applic topical DAILY Qty: 45 12RF sulfacetamide sodium (acne) 10 % suspension 1 applic topical DAILY Qty: 118 12RF loratadine [Claritin] 10 mg Tablet 10 mg PO DAILY fluticasone furoate 27.5 mcg/actuation [place],Suspension 2 spray INTRANASAL DAILY Discontinued bisacodyl [Dulcolax (bisacodyl)] 5 mg tablet,delayed release (DR/EC) 5 mg PO ONCE Qty: 4 0RF Rx Instructions: Take per colonoscopy instructions provided by ordering providers office polyethylene glycol 3350 17 gram/dose powder 17 g PO ONCE Qty: 238 0RF Rx Instructions: Take per colonoscopy instructions provided by ordering providers office Discharge Instructions Additional Instructions: DSU Colonoscopy Post-Op Instructions Instructions for Everyone who is given Anesthesia: For your safety, please do the following for the next twenty-four (24) hours: *Do Not operate a motor vehicle (car, truck, motorcycle, etc.) *Do Not drink alcoholic beverages or use any recreational drugs for the first 24 hours or while taking pain medications. The medications in your body may have a reaction that can be dangerous. *Do Not make any important decisions or sign any important papers. Findings: Normal colon today. The colon does make lots of tight turns and twists which may account for the pressure left lower quadrant or upper abdomen during the passage of stool. Follow up: Repeat Colonoscopy in 10 years time Of course, you should continue to have a yearly physical exam including a rectal exam. If you should ever notice any pain or difficulty having a bowel movement, blood in the stool, unexplained weight loss, or change in your bowel habits, please contact your health provider 1. No lifting over 20 pounds or strenuous activity for the first 24 hours after your procedure. After 24 hours there are no restrictions on your activity but you may feel fatigued for a few days. 2. After you arrive home you may have a light meal and return to your normal diet as you can tolerate it without feeling sick to your stomach. 3. You may have a bloated, gaseous feeling in your belly (abdomen) after a colonoscopy. Passing gas and belching will help. Walking or lying down on your left side with your knees flexed may relieve the discomfort. Call the office at [phone] (Office) or [phone] (Hospital) right away if you notice any of the following: a.Vomiting of blood or ?coffee ground stools?. b.Rectal bleeding 1Tbsp, blood clots or continuous bleeding. c.Severe belly (abdominal) pain. d.A hard distended belly (abdomen) and an inability to pass gas. 4. Please don?t expect to have a normal BM (bowel movement) for 2-3 days after your procedure. 5. If there are questions regarding the findings of your procedure, please contact your doctor 6. If you are unable to contact your doctor with a problem, contact the hospital at [phone]. 7. Continue all your regular medications unless directed otherwise. I understand the above instructions and have no questions. 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 The patient has been able to pass gas.? They are not having abdominal pain.? They have been able to tolerate liquids and a snack.? They do not have any nausea or vomiting.? They are not having any chest pain or shortness of breath.??? They are not having any rectal bleeding. Their vital signs have been stable-see nursing notes. We discussed findings during their colonoscopy, and any biopsies that were done/polyps that were removed. The patient will be sent a letter with any biopsy results, and when to repeat the colonoscopy.-see discharge instructions. Patient was given explicit instructions to follow-up regarding colonoscopy-refer to discharge instructions.? We reviewed resumption of medications. Patient verbalized understanding and discharged in stable and satisfactory condition- See nursing notes. (5) External hemorrhoid: Status: Acute
--- NOTE | 2024-01-28 15:42 | COLE_ITS ---
Date of service: 01/29/24 Time of Service: 10:07 Colonoscopy Report Date of procedure: 01/29/24 Pre-op diagnosis general: crcr screening Post-op diagnosis procedure note: same (small ext hem) Surgeon: Makenna Ramirez Anesthesia Type: General:No Airway Estimated blood loss (mL): 0 Pathology: none sent Complications: None Disposition: same day Prep: Miralax/Dulcolax Retraction Time: 8 Procedure Description: After informed consent was obtained the patient was taken to the procedure room and placed in a left decubitous position. Monitors were applied and a time out was done. The patients name, date of , procedure, allergies to medications and metal in their body was reviewed. The patient was then sedated. Once sedated and comfortable a rectal exam was done. External exam shows small ext hemorrhoid. Internal exam revealed a normal sphincter tone and no palpable masses. The scope was then introduced and retrofelexed. No internal hemorrhoids were identified. The scope was then advanced to the cecum some difficulty. Her colon is very tortuous. She makes very tight turns at the 2 flexures, as well as a turn in the transverse colon. The TI and appendiceal orifice were identified. The scope was then slowly retracted over 8 minutes back into the rectum. There are no polyps, AVMs, or diverticula visualized today. The scope was removed and the patient was woken up and taken back to Same day surgery in stable condition. The patient tolerated the procedure well and there were no immediate complications. Follow up: The patient should follow up in 10 years unless they develop changes in bowel habits or other new gastrointestinal complaints. [place] Bowel Prep [place] Bowel Prep Right Colon: 3 Left Colon: 3 Transverse Colon: 3 Total Score: 9
--- NOTE | 2024-01-29 05:58 | ANES.PREOP_ITS ---
General Info Date of Service Date Performed: 01/29/24 Height: 5 ft 7 in Weight: 67.132 kg Body Mass Index (BMI): 23.1 Surgical Procedure: Operation Date: 01/29/24 08:50 Proposed Procedure Side Surgeon mary Ramirez, DO Meds Allergies and Home Medications Allergies Allergy/AdvReac Type Severity Reaction Status Date / Time ragweed pollen Allergy Unknown Other (See Verified 01/29/24 08:30 Comment) scopolamine AdvReac Intermediate Other (See Verified 01/29/24 08:30 Comment) Home Medication Medication Instructions Recorded fluticasone furoate 27.5 2 spray intranasal DAILY 10/14/21 mcg/actuation nasal spray,suspension loratadine 10 mg tablet (Claritin) 10 mg PO DAILY 10/14/21 lidocaine 5 % topical cream 1 applic topical DAILY #30 grams 12/04/21 metronidazole 0.75 % topical cream 1 applic topical BID #45 grams 12/04/21 cholestyramine (with sugar) 4 gram 1 pwd PO DAILY #368.76 grams 03/25/22 oral powder levonorgestrel 21 mcg/24 hours (8 1 device intrauterine ONCE #1 ea 07/09/22 yrs) 52 mg intrauterine device (Mirena) ivermectin 1 % topical cream 1 applic topical DAILY #45 grams 04/06/23 (Soolantra) camphor-menthol 0.5 %-0.5 % lotion 1 applic topical BID 08/31/23 (Sarna Original) sulfacetamide sodium (acne) 10 % 1 applic topical DAILY #118 mL 12/08/23 lotion (suspension) Current Visit Medications: Current Medications Generic Name Dose Route Start Last Admin Trade Name Freq PRN Reason Stop Dose Admin Ringer's Solution 1,000 mls @ 80 mls/hr 01/29/24 06:00 IV 01/29/24 23:59 INFUSION CRYSTAL IV Miscellaneous Supplies 1 each 01/29/24 06:00 Iv Access IV 01/29/24 23:59 DIRECTED CRYSTAL Sodium Chloride 0 ml 01/29/24 06:00 Normal Saline Flush 10 Ml Syr IV 01/29/24 23:59 PRN PRN Sodium Chloride 0 ml 01/29/24 06:00 Normal Saline 10 Ml Vial IJ 01/29/24 23:59 DIRECTED PRN Sterile Water 0 ml 01/29/24 06:00 Water,Injection,Sterile 10 Ml Vial IJ 01/29/24 23:59 DIRECTED PRN PFSH Active Problems Active Problems: Problem Status Onset Code Screening for malignant neoplasm of colon performed Z12.11 FH: colon polyps Z83.719 Seasonal allergies J30.2 Rosacea blepharoconjunctivitis H10.829 Migraine without aura G43.009 Acne rosacea, erythematous telangiectatic type L71.8 Diastasis of rectus abdominis M62.08 IUD surveillance 07/09/22 Z30.431 Raynauds phenomenon I73.00 Changing skin lesion L98.9 Suprapubic pressure R10.2 Idiopathic small fiber sensory neuropathy G60.8 Medical History Medical History Fibroadenoma of right breast Myopia Choroidal nevus Adjustment disorder with depressed mood Congenital nevus Intradermal nevus Multiple benign melanocytic nevi Anxiety state hx of counseling; Mollusca contagiosa Medical History Comments:: Pt. states she had the scopolamine patch and stated she couldn't see Surgical History Surgical History History of surgical procedure gums History of lumpectomy of right breast Hx of cholecystectomy (~03/2021) Tobacco Smoking/Tobacco Use Status: Never Passive smoking exposure: No Second hand exposure: Yes Alcohol Alcohol Intake: current Alcohol intake frequency: a few times a month Alcohol type: beer, wine and hard liquor Substance Use Substance use: Never Substance use type: does not use Prental History History 3 Para 2 Hx # Term Pregnancies 1 Multiple births Hx # Pregnancies Ectopic pregnancies AB induced Hx Number of Living Children AB spontaneous 2 Vital Signs and Lab Results Vital Signs Most Recent Vital Signs in EMR: Temp Pulse Resp BP Pulse Ox 36.8 C 99 H 16 125/72 100 01/29/24 08:40 01/29/24 08:40 01/29/24 08:40 01/29/24 08:40 01/29/24 08:40 Lab Results Blood Type / Crossmatch: No Data to Display Complete Blood Count: No Data to Display Complete Metabolic Panel: No Data to Display Liver Function Panel: No Data to Display Coagulation Panel: No Data to Display Cardiac Panel: No Data to Display Arterial Blood Gas: No Data to Display Venous Blood Gas: No Data to Display Pancreas Panel: No Data to Display Thyroid Panel: No Data to Display Infectious Disease: No Data to Display Blood Cultures: No Data to Display Toxicology Panel: No Data to Display Panel: No Data to Display Imaging and Studies Imaging and Studies Study information below may be from another EMR and interpreted by another mary russo. Please see original notes in EMR for more complete details. EKG Summary: Conclusion Sinus tachycardia...rate> 99. Sinus. No STEMI. I have reviewed and interpreted ECG and agree with software generated interpretation. 10/14/21 Anesthesia Assessment and Plan Anesthesia History Personal History: PONV and Awareness Under Anesthesia Family History: No Family History of Anesthesia Complications Exercise Tolerance Exercise Tolerance: Metabolic Equivalents>4 Pertinent Negatives Pertinent Negatives: No Symptoms of GERD, No Major Cardiovascular Symptoms or Complaints, No Major Pulmonary Symptoms or Complaints and No History of CVA/TIA Cardiac & Pulmonary Exam Cardiac Exam: Normal S1/S2 Heart Sounds Pulmonary Exam: Clear Bilateral Breath Sounds Implantable Cardiac Device Does patient have a Pacemaker or an ICD?: No Airway Exam Known Difficult Airway: No Mallampati Class: 1 Mouth Opening: Normal (> 3cm) Thyromental Distance: Greater than 3 cm Neck Range of Motion: Full ROM Neck Circumference: Normal Teeth Condition: Normal Dentition ASA Classification ASA Score: ASA 2 Emergency Case?: No NPO Status NPO Status: NPO Clears >2 hours, Solids >8 hours Status Status: Negative HCG Anesthesia Plan Resuscitation Status: Full Code Anesthesia Technique: General Anesthesia Airway Planned: Natural Airway Monitors Used: Standard Monitors Preoperative Comments:: 48 y/o female with history of raynaud and migraines presents for colonoscopy screening
[2024-01-29 08:40] VITALS: BP 125/72; PULSE 99; RESP 16; TEMP 36.8; O2SAT 100
[2024-01-29] MEDS: Lactated Ringers 1,000 ML 80 ML IV (08:46)
[2024-01-29 09:05] VITALS: BMI 23.1
[2024-01-29 09:52] VITALS: BP 100/68; PULSE 81; RESP 100; TEMP 36.9; O2SAT 98
[2024-01-29] MEDS: Hyoscyamine 0.125 MG SL/ORAL/CHEW SL (10:19)
[2024-01-29 10:22] VITALS: BP 96/68; PULSE 75; RESP 16; O2SAT 99
--- NOTE | 2024-01-29 10:32 | W.ANESPOSTOP ---
Postoperative Evaluation Date, Time and Location Date Performed: 01/29/24 Time Performed: 10:12 Patient Location: Day Surgery Unit Vital Signs Most Recent Imported Vital Signs: Most Recent Vital Signs Temp Pulse Resp BP Pulse Ox 36.9 C 75 16 96/68 L 99 01/29/24 09:52 01/29/24 10:22 01/29/24 10:22 01/29/24 10:22 01/29/24 10:22 Pain Score Most Recent Pain Score: Most Recent Pain Score Pain Level 0 01/29/24 08:40 Assessment Mental Status: Awake (Alert & Oriented to Patient Baseline) Airway and Respiratory Function: Patent airway with normal (patient baseline) respiratory exam Cardiovascular Function: Hemodynamically Stable Hydration Status: Adequately Hydrated Nausea & Vomiting: No Nausea or Vomiting Pain: Pt. Denies Any Pain Peripheral Nerve Block: Patient did not receive a nerve block
== END 2024-01-29 11:08 | disposition home or self-care (01) ==
LOC: SUR 08:20
PROVIDERS: PCP Family Medicine; Visit Provider Surgery
PROC: 0DJD8ZZ Inspection of Lower Intestinal Tract, Via Natural or Artificial Opening Endoscopic (ICD-10-PCS; CPT 45378; principal; 2024-01-29 08:45)
DX: Z12.11 Encounter for screening for malignant neoplasm of colon; K64.4 Residual hemorrhoidal skin tags; K63.89 Other specified diseases of intestine
CPT/HCPCS: 45378; 81025; J2001; J2405; J2704; J3490

== ENCOUNTER → 2024-05-23 02:00 | Outpatient (CLI) | payer BC, SELFPAY ==
--- OUTSIDE RECORDS SUMMARY | 2024-05-12 00:20 | XMS_ITS | Referral Summary ---
Author Organization [facility] Address [address] [place] [address] Care Team Providers Care Fiber Artist Name Role Phone Nikki Macias MD Primary Care Provider Unavailable Allergies Active Allergy Reactions Criticality Noted Date Comments Ragweed Pollen 11/07/2022 Medications Medication Sig Dispensed Refills Start Date End Date Status fluticasone (VERAMYST) 27.5 mcg/actuation nasal spray Instill 27.5 mcg into right nostril daily. 09/14/2021 Active loratadine 10 mg capsule Take by mouth daily. 10/14/2021 Acti ve ivermectin 1 % cream Apply topically daily. Active lidocaine (LMX 5) 5 % cream Apply 1 application topically every 4 hours as needed. Active metroNIDAZOLE (METROCREAM) 0.75 % cream Apply 1 application topically 2 times daily. Use a thin layer to affected areas after washing Active sulfacetamide sodium, Acne, (KLARON) 10 % lotion Apply 1 application topically daily. Active CHOLESTYRAMINE, WITH SUGAR, ORAL Take 368.76 g by mouth daily. Active levonorgestreL (MIRENA) 20 mcg/24 hours (8 yrs) 52 mg IUD 1 Each by intrauterine route continuous implantable. Active Active Problems Problem Noted Date Diagnosed Date H/O seasonal allergies Migraine without aura Rosacea blepharoconjunctivitis Rosacea, acne Vulvodynia Numbness and tingling of right lower extremity Diastasis of rectus abdominis Encounter for routine checki ng of intrauterine contraceptive device (IUD) Contraception management Raynaud's syndrome Immunizations Name Administration Dates Next Due Historical Influenza Vaccine, Unspecified 2021 Social History Tobacco Use Types Packs/Day Years Used Date Smoking Tobacco: Never Passive Smoke Exposure: Past Tobacco Cessation:Counseling Given: Not Answered Alcohol Use Standard Drinks/Week Comments Not Currently 0 (1 standard drink = 0.6 oz pure alcohol) A few times per month- beer, wine, hard liquor Education Answer Date Recorded What is the highest level of school you have completed or the highest degree you have received? Bachelor's degree (e.g., BA, AB, BS) 11/07/2022 Sex and Gender Information Value Date Recorded Sex Assigned at Not on file Gender Identity Female 10/30/2022 9:31 EST Sexual Orientation Not on file Last Filed Vital Signs Vital Sign Reading Time Taken Comments Blood Pressure 114/66 11/27/2022 1504 EST Pulse 76 11/27/2022 1504 EST Temperature 36.6 ??C (97.9 ??F) 11/27/2022 1504 EST Respiratory Rate - - Oxygen Saturation - - Inhaled Oxygen Concentration - - Weight 63 kg (139 lb) 11/27/2022 1504 EST Height 170.2 cm (5' 7) 11/27/2022 1504 EST Body Mass Index 21.77 11/27/2022 1504 EST Functional Status Functional Status Response Date of Assess ment Because of a physical, menta l, or emotional condition, does this person have difficulty doing errands alone such as visiting a doctor's office or shopping? No 11/27/2022 Cognitive Status Response Date of Assessm ent Because of a physical, menta l, or emotional condition, does this person have serious difficulty concentrating, remembering, or making decisions? No 11/27/2022 Plan of Treatment Not on file Care Teams Fiber Artist Relationship Specialty Start Date End Date Nikki Macias MD [address] [place] [address] [address] [place] [id number] PCP - General Family Medicine - Primary Care 10/30/22
--- OUTSIDE RECORDS SUMMARY | 2024-05-12 00:20 | XMS_ITS | Clinical Summary ---
Author Organization [facility] Address [facility] [place] [address] Care Team Providers Care Change Management Analyst Name Role Phone Nikki Macais MD Primary Care Provider [phone] Allergies Active Allergy Reactions Criticality Noted Date Comments Ragweed Pollen 06/03/2023 Medications Medication Sig Dispensed Refills Start Date End Date Status fluticasone (VERAMYST) 27.5 mcg/actuation [place], Suspension 2 sprays by Nasal route daily. Active loratadine (Claritin) 10 mg Tablet Take 10 mg by mouth daily. Active ivermectin (Soolantra) 1 % Cream Apply topically daily. Active Lidocaine 5 % Cream Apply topically. Active metroNIDAZOLE (METROCREAM) 0.75 % Cream Apply topically 2 times daily. Active sulfacetamide (KLARON) 10 % Suspension Apply topically. Active levonorgestreL (Mirena) 21 mcg/24 hours (8 yrs) 52 mg IUD 1 each by Intrauterine route Continuous (Device). Expected removal date 2029 Active Social History Tobacco Use Types Packs/Day Years Used Date Smoking Tobacco: Never Assessed Sex and Gender Information Value Date Recorded Sex Assigned at Female 06/10/2023 12:34 AM EDT Gender Identity Female 06/10/2023 12:34 AM EDT Sexual Orientation Straight 06/10/2023 12 :34 AM EDT Plan of Treatment Health Maintenance Due Date Last Done Comments CT Colonography 1977 Colonoscopy 1977 Colorectal Cancer Screening 1977 FIT DNA 1977 FIT 1977 Sigmoidoscopy (10 year) with FIT yearly 1977 Sigmoidoscopy 1977 HIV screen 1995 Hepatitis C Screening 1995 Hepatitis B vaccine (0-59 yrs) (1) 1996 Tdap adult 1996 Tetanus vaccine 1996 HPV test 2007 PAP Smear 2007 Breast Cancer Share Decision Needed 2017 Breast Cancer screening 2017 Covid-19 Vaccine (1 - 2022- season) 2023 Influenza (Flu) vaccine (1 o f 1 - Influenza standard series) 06/19/2024 Care Teams Change Management Analyst Relationship Specialty Start Date End Date Nikki Macias MD [address] [place] [id number] PCP - General Family Medicine 02/20/23
--- OUTSIDE RECORDS SUMMARY | 2024-05-12 00:20 | XMS_ITS | Encounter Summary ---
Author Organization [facility] Address [address] [place] [address] Care Team Providers Care Director Of Online Education Name Role Phone Nikki Macias MD Primary Care Provider Unavailable Encounter Details Date Type Department Care Team (Late st Contact Info) Description 02/10/2023 Lab Requisition [facility] Pathology & Laboratory Medicine - [facility] [address] [place] [address] Outr Resulting Lab, Provider Social History Tobacco Use Types Packs/Day Years Used Date Smoking Tobacco: Never Passive Smoke Exposure: Past Alcohol Use Standard Drinks/Week Comments Not Currently [...] 9:31 EST Sexual Orientation Not on file documented as of this encounter Functional Status Functional Status Response Date of [...] concentrating, remembering, or making decisions? No 11/27/2022 documented as of this encounter Plan of Treatment Not on file documented as of this encounter Procedures Procedure Name Priority Date/Time Associated Diagnosis Comments SPEP, INCLUDES QUANTITATION OF MONOCLONAL SPIKE PERFORMABLE Today 02/10/2023 9:47 EDT SPEP, INCLUDES QUANTITATION OF MONOCLONAL SPIKE Routine 02/10/2023 9:47 EDT PROTEIN, TOTAL Today 02/10/2023 9:47 EDT documented in this encounter Results * SPEP, INCLUDES QUANTITATION OF MONOCLONAL SPIKE PERFORMABLE (02/10/2023 9:47 EDT) Albumin % 61.3 55.8 - 66.1 % 02/11/2023 13:10 [facility] Albumin g/dL 4.0 3.6 - 5.2 g/dL 02/11/2023 13:10 [facility] Alpha-1 % 3.7 2.9 - 4.9 % 02/11/2023 13:10 [facility] Alpha-1 g/dL 0.20 0.15 - 0.40 g/dL 02/11/2023 13:10 [facility] Alpha-2 % 8.6 7.1 - 11.8 % 02/11/2023 13:10 [facility] Alpha-2 g/dL 0.60 0.50 - 1.00 g/dL 02/11/2023 13:10 [facility] Beta % 9.6 8.4 - 13.1 % 02/11/2023 13:10 [facility] Beta g/dL 0.60 0.60 - 1.20 g/dL 02/11/2023 13:10 [facility] Gamma % 16.8 11.1 - 18.8 % 02/11/2023 13:10 [facility] Gamma g/dL 1.10 0.60 - 1.60 g/dL 02/11/2023 13:10 [facility] SPEP Comment No apparent monoclonal protein seen on serum electrophoresis 02/11/2023 13:10 [facility] Comment:See scanned/suppleme ntary report. Total Protein 6.5 6.3 - 8.2 g/dL 02/11/2023 13:10 [facility] Blood VENOUS BLOOD / Unknown 02/10/2023 9:47 EDT 02/10/2023 21:07 EDT Provider Outr Resulting Lab CHEMISTRY & BLOOD GAS ORDERABLES Performing Organization Address [facility] Co de Phone Number [facility] [address] [place] [address] * PROTEIN, TOTAL (02/10/2023 9:47 EDT) Blood VENOUS BLOOD / Unknown 02/10/2023 9:47 EDT 02/10/2023 21:07 EDT Provider Outr Resulting Lab CHEMISTRY & BLOOD GAS ORDERABLES Performing Organization Address [facility] Co de Phone Number [facility] [address] [place] [address] documented in this encounter Visit Diagnoses Not on filedocumented in this encounter Care Teams Director Of Online Education Relationship Specialty Start Date End Date Nikki Macias MD [address] [place] [address] PCP - General Family Medicine - Primary Care 10/30/22 documented as of this encounter
--- OUTSIDE RECORDS SUMMARY | 2024-05-12 00:20 | XMS_ITS | Encounter Summary ---
Author Organization [facility] Address [facility] [place] [address] Care Team Providers Care Wood Technologist Name Role Phone Nikki Macias MD Primary Care Provider [phone] Reason for Visit * Consultation (Routine) - Closed Specialty Diagnoses / Procedures Referred By Princess prieto Referred To Contact Dermatology Diagnoses Disorder of skin and subcutaneous tissue Karri Leigh, DNP [address] [place] [address] [facility] Dermatology [address] [place] [address] Referral ID Status Reason Start Date Expiration Date V isits Requested Visits Authorized [id number] Closed Consult, Test & Treat PCP Updated and/or Approved 02/20/2023 02/20/2024 6 6 Encounter Details Date Type Department Care Team (Late st Contact Info) Description 06/03/2023 8:45 AM EDT Office Visit Dermatology at [facility] [address] [place] [address] Claudia Velazquez MD [address] [place] [address] Multiple benign melanocytic nevi of upper and lower extremities and trunk; Neoplasm of unspecified behavior of bone, soft tissue, and skin; Pruritus; Folliculitis Social History Tobacco Use Types Packs/Day Years Used Date Smoking Tobacco: Never Assessed Sex and Gender Information Value Date Recorded Sex Assigned at Female 06/10/2023 12:34 AM EDT Gender Identity Female 06/10/2023 12:34 AM EDT Sexual Orientation Straight 06/10/2023 12 :34 AM EDT documented as of this encounter Progress Notes * Claudia Velazquez MD - 06/03/2023 8:45 AM EDT Images from the original note were not included. DEPARTMENT OF DERMATOLOGY Medical Dermatology Clinic Provider: Claudia Velazquez MD Patient's preferred name Annie Preferred contact method for results [x]Phone []myD-H []Letter Detailed phone message OK? Yes Are there any other people with whom we may discuss your care? Yes Ray Past Medical History Date, location, treatment Melanoma No Dysplastic nevi No SCC No BCC No AKs No UV Exposure & Protection N Sun Protection: 30+ Family History Details Melanoma No NMSC No Other relevant family history No Social History Occupation: Hobbies: Other: Pre-Procedure Screening Details Allergy to lidocaine, epinephrine, Dermabond, chlorhexidine, or adhesives No Bleeding disorder or blood thinners No Pacemaker, defibrillator, deep brain stimulator, cochlear implant No History of Present Illness: Annie Waterman is a 47 y.o. Patient is referred to the clinic at the request of Karri Leigh for a full skin exam, the patient states the following concerns: - Newly raised mole on the chest, caught her nail on it 4 months ago. Not symptomatic other than catching it. -Dark mole on the left forearm, clinically monitoring, unchanged. - 2 moles within each other on the left wrist - Breakouts on the scalp? bottom of the scalp - Lesion behind the right shoulder, unsure its its a bug bite or something else - Right armpit where it meets the breast, felt a spot, unable to find it last week when looking forit. - Itching in the pubic area and migrates down to the labias, using a cream for a few days until it calms down. Itch does not go away. Been present for ~1 year. No rash present. Review of Systems: General: Feeling well. Skin: No other skin concerns. Medications: Reviewed in eD-H Allergies: Reviewed in eD-H Skin Examination: Full skin examination: Patient asked to undress to their comfort level. Verbalized that the provider's preference is that patient remove all clothing and that the provider will not examine areas patient elects to keep covered. Examination of the scalp, hair, head, face, ears, neck, chest, axillae, abdomen, back, buttocks, genitalia, and upper and lower extremities was normal with the exception ofthe findings below. Assessment/Plan #. Nevus, r/o atypia - 4 x 3 mm light brown macule on the left medial upper back (Figure 1). - Changing, per photos - Recommended a skin biopsy to confirm/clarify the nature of the skin lesion. After discussion of potential risks (scarring, bleeding, infection) and recurrence, patient agreed to proceed. - Patient denies known allergies to lidocaine and epinephrine. Procedure: Skin shave biopsy Location: left medial upper back (specimen A) Time of procedure: 9:37 AM Discussed indications for procedure and expectations including risks and benefits. Verbal consent obtained. Time out performed. Skin prepped with alcohol. Local anesthesia with 1% xylocaine, 1/100,000 epinephrine. A sample of the lesion was removed by shave technique to the level of the dermis and s ubmitted to Pathology. Hemostasis obtained (AlCl). There were no complications; patient tolerated the procedure well. Wound dressed. Post-procedure expectations, wound care and activity restrictions reviewed. - Follow-up based on pathology results. #. Nevus, r/o atypia - 5 x 4 mm dark brown macule on the left medial lower back (Figure 2). - Recommended a skin biopsy to confirm/clarify the nature of the skin lesion. After discussion of potential risks (scarring, bleeding, infection) and recurrence, patient agreed to proceed. - Patient denies known allergies to lidocaine and epinephrine. Procedure: Skin shave biopsy Location: left medial lower back (specimen B) Time of procedure: 9:37 AM Discussed indications for procedure and expectations including risks and benefits. Verbal consent obtained. Time out performed. Skin prepped with alcohol. Local anesthesia with 1% xylocaine, 1/100,000 epinephrine. A sample of the lesion was removed by shave technique to the level of the dermis and s ubmitted to Pathology. Hemostasis obtained (AlCl). There were no complications; patient tolerated the procedure well. Wound dressed. Post-procedure expectations, wound care and activity restrictions reviewed. - Follow-up based on pathology results. #. Nevus, r/o atypia - 1.0 cm dark brown changing macule on the right bañuelos (Figure 3). - Recommended a skin biopsy to confirm/clarify the nature of the skin lesion. After discussion of potential risks (scarring, bleeding, infection) and recurrence, patient agreed to proceed. - Patient denies known allergies to lidocaine and epinephrine. Procedure: Skin shave biopsy Location: right bañuelos (specimen C) Time of procedure: 9:37 AM Discussed indications for procedure and expectations including risks and benefits. Verbal consent obtained. Time out performed. Skin prepped with alcohol. Local anesthesia with 1% xylocaine, 1/100,000 epinephrine. A sample of the lesion was removed by shave technique to the level of the dermis and s ubmitted to Pathology. Hemostasis obtained (AlCl). There were no complications; patient tolerated the procedure well. Wound dressed. Post-procedure expectations, wound care and activity restrictions reviewed. - Follow-up based on pathology results. #. Benign Nevi - Scattered medium brown, evenly pigmented macules and papules on the trunk and extremities with reassuring pigment pattern on dermoscopy. - Discussed benign nature of lesions and provided reassurance. Will continue to monitor. #. Folliculitis - Scattered 0.1-0.2 cm erythematous, follicle-centered pustules on the upper back. - Discussed benign nature of condition and provided reassurance. #. Pruritus, groin area - no dermatitis appreciated. - Recommend Sarna lotion or CeraVe anti-itch (with pramoxine) Figure 1 Figure 2 Figure 3 Photo(s) taken and charted with patient's verbal consent. Other: N/A RTC: pending pathology Scribe attestation: EILEEN Ramon and Alycia Mace have performed the documentation for this encounter in the presence of and acting as a scribe for Claudia Velazquez MD. I performed the above scribed service and agree with the accuracy of the documentation in this encounter. Reviewed and signed by: Claudia Velazquez MD Dermatology [facility] * Claudia Velazquez MD - 06/03/2023 8:45 AM EDT Sent my Admittor message with results. NTD further documented in this encounter Plan of Treatment Not on file documented as of this encounter Procedures Procedure Name Priority Date/Time Associated Diagnosis Comments SPECIMEN TO PATHOLOGY Routine 06/03/2023 10:03 AM EDT Neoplasm of unspecified behavior of bone, soft tissue, and skin SPECIMEN TO PATHOLOGY Routine 06/03/2023 10:03 AM EDT Neoplasm of unspecified behavior of bone, soft tissue, and skin SPECIMEN TO PATHOLOGY Routine 06/03/2023 10:03 AM EDT Neoplasm of unspecified behavior of bone, soft tissue, and skin SURGICAL PATHOLOGY REPORT Routine 06/03/2023 9:28 AM EDT documented in this encounter Results * Specimen to Pathology (06/03/2023 10:03 AM EDT) AP Specimen 06/03/2023 10:0 3 AM EDT 06/03/2023 10:03 AM EDT Narrative [facility] - 06/03/2023 10:03 AM EDT Specimen requisition ordered. ??Separate Pathology report to follow Claudia Velazquez MD PATHOLOGY/CYTOLOGY ORDERABLES Performing Organization Address [facility] Co de Phone Number [facility] [place] [address] * Specimen to Pathology (06/03/2023 10:03 AM EDT) AP Specimen 06/03/2023 10:0 3 AM EDT 06/03/2023 10:03 AM EDT Narrative [facility] - 06/03/2023 10:03 AM EDT Specimen requisition ordered. ??Separate Pathology report to follow Claudia Velazquez MD PATHOLOGY/CYTOLOGY ORDERABLES Performing Organization Address [facility] Co de Phone Number [facility] [place] [address] * Specimen to Pathology (06/03/2023 10:03 AM EDT) AP Specimen 06/03/2023 10:0 3 AM EDT 06/03/2023 10:03 AM EDT Narrative [facility] - 06/03/2023 10:03 AM EDT Specimen requisition ordered. ??Separate Pathology report to follow Claudia Velazquez MD PATHOLOGY/CYTOLOGY ORDERABLES [facility] [place] [id number] * Surgical Pathology Report (06/03/2023 9:28 AM EDT) FINAL DIAGNOSIS (AP) [id number] ? Location: [facility] The signing pathologist has (i) examined the relevant preparation(s) for the specimen(s) and (ii) rendered or confirmed the diagnosis(es). . ?Surgical Pathology DIAGNOSIS A. 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 Left medial lower back, skin shave biopsy: - ??Compound dysplastic melanocytic nevus with mild atypia, specimen edges are free of lesion on the available planes of sectioning examined C. Right bañuelos, skin shave biopsy: - ??Compound dysplastic melanocytic nevus with mild atypia, present at the peripheral specimen edge Electronically signed by: ?Cira NELSON, Bayron De Jesus Verified: ??06/10/2023 13:07 ??Dermatopatholo gist Performed at: ??-[facility] Dept. of Pathology, [place] [address] Bun Panner: Eddie Coyne MD, FCAP, ??CLIA Certificate: [id number] SPECIMEN(S) SUBMITTED A - left medial upper back, skin shave biopsy (1) B - left medial lower back, skin shave biopsy (1) C - right bañuelos, skin shave biopsy (1) CLINICAL INFORMATION A - Nevus, rule out atypia-4 x 3 mm light brown macule (specimen A) B - Nevus, rule out atypia-5 x 4 mm dark brown macule (specimen B) C - Nevus, rule out atypia-1.0 cm dark brown change macule (specimen C) SPECIMEN PROCESSING A - Labeled/Fixative : Left medial upper back-A, formalin. Quantity/Size: ??Single, 0.7 x 0.5 x 0.1 cm. Tissue Description: Shave of mason-pink skin with a 0.3 x 0.2 cm mason-brown macule. Sections/Process ing: Inked, trisected and entirely submitted in 1 cassette labeled A1. B - Labeled/Fixative : Left medial lower back-B, formalin. Quantity/Size: ??Single, 0.7 x 0.5 x 0.1 cm. Tissue Description: Shave of mason-pink skin with a 0.4 x 0.3 cm red brown macule. Sections/Process ing: Inked, trisected and entirely submitted in 1 cassette labeled B1. C - Labeled/Fixative : Right bañuelos-C, formalin. Quantity/Size: ??Single, 1.0 x 0.5 x 0.1 cm. Tissue Description: Shave of the mason-brown macule. Sections/Process ing: Inked, quadrisected and entirely submitted in 1 cassette labeled C1. ??nrl 06/10/2023 1:07 PM EDT [facility] 06/03/2023 9:28 AM EDT Claudia Velazquez MD PATHOLOGY/CYTOLOGY ORDERABLES [facility] [place] [address] documented in this encounter Visit Diagnoses Diagnosis Multiple benign melanocytic nevi of upper and lower extremities and trunk Neoplasm of unspecified behavior of bone, soft tissue, and skin Pruritus Unspecified pruritic disorder Folliculitis Other specified disease of hair and hair follicles documented in this encounter Care Teams Wood Technologist Relationship Specialty Start Date End Date Nikki Macias MD [address] [place] [address] PCP - General Family Medicine 02/20/23 documented as of this encounter
--- OUTSIDE RECORDS SUMMARY | 2024-05-12 00:20 | XMS_ITS | Encounter Summary ---
[place] [address] Care Team Providers Care Program Counselor Name Role Phone Nikki Macias MD Primary Care Provider [phone] Encounter Details Date Type Department Care Team (Latest Contact Info) Description 06/03/2023 Travel Social History Tobacco Use Types Packs/Day Years Used Date Smoking Tobacco: Never Assessed Sex and Gender Information Value Date Recorded Sex Assigned at Female 06/10/2023 12:34 AM EDT Gender Identity Female 06/10/2023 12:34 AM EDT Sexual Orientation Straight 06/10/2023 12 :34 AM EDT documented as of this encounter Plan of Treatment Not on file documented as of this encounter Visit Diagnoses Not on filedocumented in this encounter Care Teams Program Counselor Relationship Specialty Start Date End Date Nikki Macias MD [address] [place] [address] PCP - General Family Medicine 02/20/23 documented as of this encounter
--- OUTSIDE RECORDS SUMMARY | 2024-05-12 00:20 | XMS_ITS | Encounter Summary ---
Author Organization [facility] [place] [address] Care Team Providers Care Launching Pad Mechanic Name Role Phone Nikki Macias MD Primary Care Provider [phone] Reason for Referral * Consultation (Routine) - Closed Specialty Diagnoses / Procedures Referred By Princess prieto Referred To Contact Dermatology Diagnoses Disorder of skin and subcutaneous tissue Karri Leigh DNP [facility] [place] [address] [facility] Dermatology [address] [place] [address] Referral ID Status Reason Start Date Expiration Date V isits Requested Visits Authorized [id number] Closed Consult, Test & Treat PCP Updated and/or Approved 02/20/2023 02/20/2024 6 6 Encounter Details Date Type Department Care Team (Late st Contact Info) Description 02/20/2023 Transcribe Orders eDH Incoming Referrals [phone] Karri Leigh DNP [facility] [address] [place], [place] [address] Disorder of skin and subcutaneous tissue Social History Tobacco Use Types Packs/Day Years Used Date Smoking Tobacco: Never Assessed Sex and Gender Information Value Date Recorded Sex Assigned at Female 06/10/2023 12:34 AM EDT Gender Identity Female 06/10/2023 12:34 AM EDT Sexual Orientation Straight 06/10/2023 12 :34 AM EDT documented as of this encounter Plan of Treatment Scheduled Referrals Name Type Priority Associated Diagnoses Orde r Schedule Referral to Dermatology Outpatient Referral Routine Disorder of skin and subcutaneous tissue Ordered: 02/20/2023 documented as of this encounter Visit Diagnoses Diagnosis Disorder of skin and subcutaneous tissue Unspecified disorder of skin and subcutaneous tissue documented in this encounter Care Teams Launching Pad Mechanic Relationship Specialty Start Date End Date Nikki Macias MD [address] [place] [address] [place] [address] PCP - General Family Medicine 02/20/23 documented as of this encounter
--- OUTSIDE RECORDS SUMMARY | 2024-05-12 00:20 | XMS_ITS | Clinical Summary ---
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, right Intradermal nevus Mollusca contagiosa Multiple benign melanocytic nevi Myopia Family History Medical History Relation Comments Alcohol Abuse Father Depression Father Heart Disease Father Elevated Lipids Maternal Grandfather Hypertension Maternal Grandfather Depression Mother and anxiety Hypertension Mother Depression Sister Substance Abuse Sister Relation Status Comments Father Maternal Grandfather Maternal Grandmother Mother Alive Paternal Grandfather Paternal Grandmother Sister Social History Tobacco Use Types Packs/Day Years [...] 9:31 EST Sexual Orientation Not on file Obstetrics History Last Filed Vital Signs Vital Sign Reading [...] Body Mass Index 21.77 11/27/2022 1504 EST Plan of Treatment Health Maintenance Due Date Last Done Comments Hepatitis C Screen 1977 Hepatitis B Vaccine (1 of - + 3-dose series) 1996 COVID-19 Vaccine (2022-24 season) 2023, 01/23/2021 Care Teams Water And Fire Technician Relationship Specialty Start Date End Date Nikki Macias MD [address] [place] [address] [place] [address] PCP - General Family Medicine - Primary Care 10/30/22
--- OUTSIDE RECORDS SUMMARY | 2024-05-12 00:20 | XMS_ITS | Encounter Summary ---
Author Organization [facility] Address [address] [place] [address] Care Team Providers Care Health Practice Manager Name Role Phone Nikki Macias MD Primary Care Provider Unavailable Encounter Details Date Type Department Care Team (Late st Contact Info) Description 11/27/2022 16:15 EST Phlebotomy Only [facility] - Outpatient Phlebotomy Drawing [address] [place] [address] Lab, [facility] [place] Paresthesia; Positive OLIVIA (antinuclear antibody) Social History Tobacco Use Types Packs/Day Years [...] Procedure Name Priority Date/Time Associated Diagnosis Comments CASEY ANTIBODY PANEL Routine 11/27/2022 16 :20 EST Paresthesia Positive OLIVIA (antinuclear antibody) SCL 70 ANTIBODY, IGG, SERUM Routine 11/27/2022 16:20 EST Paresthesia Positive OLIVIA (antinuclear antibody) documented in this encounter Results * SCL 70 ANTIBODY, IGG, SERUM (11/27/2022 16:20 EST) Scl 70 Ab, IgG, S <0.2 <1.0 (Negative ) U 11/28/2022 17:04 EST [facility] Comment: Test Performed by: [facility] [address] [place] [address] Vp Organizational Development: Jaime Nazario M.D. Ph.D.; CLIA# [id number] Blood VENOUS BLOOD / Unknown Venipuncture / Unknown 11/27/2022 16:20 EST 11/27/2022 16:49 EST Denae Cassidy MD IMMUNOLOGY AND SERO LOGY ORDERABLES Performing Organization Address City/State/[facility] Co de Phone Number [facility] [address] [place] [address] * EXTRACTABLE NUCLEAR ANTIGEN PANEL (11/27/2022 16:20 EST) Pathologist [facility] SSA Antibody 2.3 <20.0 Units 11/28/2022 16:14 [facility] Comment: ? Negative: <20.0 Units ? Weak Positive: 20.0 - 39.9 Units ? Moderate Positive: 40.0 - 80.0 Units ? Strong Positive: >80.0 Units Results were obtained with the M[employer] QUANTA Lite SS-A LIANE. ??SS-A values obtained with different manufacturers' assay methods may not be used interchangeably. ??The magnitude of the reported IgG levels cannot be correlated to an endpoint titer. SSB Antibody 3.8 <20.0 Units 11/28/2022 16:14 [facility] Comment: ? Negative: <20.0 Units ? Weak Positive: 20.0 - 39.9 Units ? Moderate Positive: 40.0 - 80.0 Units ? Strong Positive: >80.0 Units Results were obtained with the Mime[employer] QUANTA Lite SS-B LIANE. ??SS-B values obtained with different manufacturers' assay methods may not be used interchangeably. ??The magnitude of the reported IgG levels cannot be correlated to an endpoint titer. SM (Guerin) Antibody 2.0 <20.0 Units 11/28/2022 16:14 [facility] Comment: ? Negative: <20.0 Units ? Weak Positive: 20.0 - 39.9 Units ? Moderate Positive: 40.0 - 80.0 Units ? Strong Positive: >80.0 Units Results were obtained with the tolingoA Lite Sm LIANE. ??Sm values obtained with different manufacturers' assay methods may not be used interchangeably. ??The magnitude of the reported IgG levels cannot be correlated to an endpoint titer. SENIOR NET DEVELOPER Antibody 1.2 <20.0 Units 11/28/2022 16:14 [facility] Comment: ? Negative: <20.0 Units ? Weak Positive: 20.0 - 39.9 Units ? Moderate Positive: 40.0 - 80.0 Units ? Strong Positive: >80.0 Units Results were obtained with the Mang?rKarta Lite SENIOR NET DEVELOPER LIANE. SENIOR NET DEVELOPER values obtained with different business banking manager's assay methods may not be used interchangeaby. ??The magnitude of the reported IgG levels cannot be be correlated to an endpoint titer. A positive result in the Quanta Lite SENIOR NET DEVELOPER LIANE indicates the presence of antibodies reactive with the SENIOR NET DEVELOPER/Sm complex but cannot distinguish between anti-Sm and anti-SENIOR NET DEVELOPER activity. Blood VENOUS BLOOD / Unknown Venipuncture / Unknown 11/27/2022 16:20 EST 11/27/2022 16:48 EST Denae Cassidy MD IMMUNOLOGY AND SERO LOGY ORDERABLES [facility] [address] [place] [address] documented in this encounter Visit Diagnoses Diagnosis Paresthesia Disturbance of skin sensation Positive OLIVIA (antinuclear antibody) Other and unspecified nonspecific immunological findings documented in this encounter Care Teams Health Practice Manager Relationship Specialty Start Date End Date Nikki Macias MD [facility] [place] [address] PCP - General Family Medicine - Primary Care 10/30/22 documented as of this encounter
--- OUTSIDE RECORDS SUMMARY | 2024-05-12 00:21 | XMS_ITS | Encounter Summary ---
Author Organization [facility] Address [address] [place] [address] Care Team Providers Care Meat Cutting Block Repairer Name Role Phone Nikki Macias MD Primary Care Provider Unavailable Reason for Visit * Reason Comments New Patient Visit Raynaud's syndrome, joint pain. Pt states started w tingles/stiffness, not typical pain but right foot and hand, little on toes. Really started on right side. First had tingling last few days of April, went for hours first time-sort of static feeling. Occasionally right elbow and knee and sometimes left toes and knee a couple times. Also being sent to neuro. Would like to review labs possibly, was told no inflammatory markers shown. Feeling was described as distracting, not painful. Shoulder nerve? * Referral (Routine) - Authorization Not Required Specialty Diagnoses / Procedures Referred By Princess prieto Referred To Contact Diagnoses Raynaud's syndrome without gangrene Anesthesia of skin Paresthesia of skin Pain in joint, multiple sites Nikki Macias MD [address] [place] [id number] [facility] [address] [place] [address] Referral ID Status Reason Start Date Expiration Date Visits Requested Visits Authorized [id number] Authorization Not Required 1 1 Encounter Details Date Type Department Care Team (Late st Contact Info) Description 11/27/2022 15:00 EST Office Visit [facility] Rheumatology [address] [place] [address] Denae Cassidy MD [address] [facility] [address] [place] [address] Positive OLIVIA (antinuclear antibody) (Primary Dx); Paresthesia; Polyarthralgia; Raynaud's disease without gangrene Social History Tobacco Use Types Packs/Day Years [...] on file documented as of this encounter Last Filed Vital Signs Vital Sign Reading [...] Body Mass Index 21.77 11/27/2022 1504 EST documented in this encounter Functional Status Functional Status Response [...] No 11/27/2022 documented as of this encounter Patient Instructions * Patient Instructions* Denae Cassidy MD - 11/27/2022 15:00 EST Plan: -I do not see evidence of an autoimmune disease to explain your symptoms but will do a couple of additional labs -follow-up with neurology as planned -your Raynaud's is likely primary and not related to underlying disease; recommend keeping your core and hands/feet warm, next step would be medication such as blood pressure medication -If evidence of immune mediated inflammatory disease is not detected on further workup you do not require rheumatology follow-up unless you develop new symptoms concerning for autoimmune disease (e.g. fever, swollen lymph nodes, rash, swollen joints, evidence of organ involvement such as kidney or lung) documented in this encounter Progress Notes * Denae Cassidy MD - 11/27/2022 1500 EST DIVISION OF RHEUMATOLOGY AND CLINICAL IMMUNOLOGY CONSULTATION NOTE Date of Service: 11/27/2022 Patient seen in consultation at the request of Nikki Macias,* for rheumatologic evaluation for Raynaud's, paresthesias, arthralgia, positive OLIVIA Chief Complaint Patient presents with ??? New Patient Visit Raynaud's syndrome, joint pain. Pt states HISTORY OF PRESENT ILLNESS: Ms. Annie Waterman is a 46 y.o. female with rosacea, Raynaud's, cholecystitis s/p cholecystectomy and possible migraine who presents today for rheumatologic evaluation for Raynaud's, paresthesia and positive OLIVIA. Developed acute onset numbness/tingling in right arm and right foot in April. Symptoms became intermittent and she now very rarely has the tingling. Had a day in September when entire hand was tingling. Told it may be CTS but never got a brace asit went away. Now has stiff sensation in right hand around MCPs as well as over right ankle and toes. Has occasional right knee pain. No connection of stiffness and tingling to any activity. The knee pain may be related to use. Stiffness across hand and ankle are persistent. Is still active snowboarding, playing with kids. Not limited Has blanching of digits when exposed to cold, present since her teens. She has never been bothered by it until this past fall when it seems worse. No blanching of toes. No fixed discoloration or ulceration. Some constipation over the years. Now has some urgency since having her gallbladder out and is aware of her GI motility. No hematochezia. Has occasional pinching feeling across clavicle and in pelvis, faint but recurring. One day in September her hand shook then it resolved. No history of inflammatory eye disease, IBD, psoriasis. Denies dactylitis or enthesitis. 2 early miscarriages. No DVT/PE. REVIEW OF SYSTEMS: Symptom Yes No Symptom Yes No Fever X Morning stiffness X Fatigue X Numbness/ tingling X Night sweats X Headaches X Weight change X Muscle weakness X Eye discomfort X Dysuria X Mouth/nose sores X Urinary frequency X Chest pain X Hematuria X Palpitations X Trouble sleeping X Dyspnea X Anxiety X Cough X Depression X Nausea/ vomiting X Change in mood X Abdominal pain X Skin rash/ changes X Blood in stools X Sun induced rash X Diarrhea X Raynaud's X Constipation X Itching X Joint pain X Hair loss X Muscle pain X Other X PMH PSH Past Medical History: Diagnosis Date ??? Adjustment disorder with mixed anxiety and depressed mood ??? Choroidal nevus ??? Congenital nevus ??? Fibroadenoma of breast, right ??? Intradermal nevus ??? Mollusca contagiosa ??? Multiple benign melanocytic nevi ??? Myopia Past Surgical History: Procedure Laterality Date ??? BREAST LUMPECTOMY Right ??? CHOLECYSTECTOMY 03/2021 ??? MOUTH SURGERY On gums ALLERGIES Allergies Allergen Reactions ??? Ragweed Pollen SOCIAL HISTORY FAMILY HISTORY Social History Tobacco Use ??? Smoking status: Never Passive exposure: Past ??? Smokeless tobacco: Not on file Substance Use Topics ??? Alcohol use: Not Currently Comment: A few times per month- beer, wine, hard liquor Stay at home parent. . 2 children. Family History Problem Relation Age of Onset ??? Hypertension Mother ??? Depression Mother and anxiety ??? Depression Father ??? Alcohol Abuse Father ??? Heart Disease Father ??? Depression Sister ??? Substance Abuse Sister ??? Hypertension Maternal Grandfather ??? Elevated Lipids Maternal Grandfather No family history of autoimmune disease. MEDICATIONS: Current Outpatient Medications Medication Sig ??? CHOLESTYRAMINE, WITH SUGAR, ORAL Take 368.76 g by mouth daily. ??? fluticasone (VERAMYST) 27.5 mcg/actuation nasal spray Instill 27.5 mcg into right nostril daily. ??? ivermectin 1 % cream Apply topically daily. ??? levonorgestreL (MIRENA) 20 mcg/24 hours (8 yrs) 52 mg IUD 1 Each by intrauterine route continuous implantable. ??? lidocaine (LMX 5) 5 % cream Apply 1 application topically every 4 hours as needed. ??? loratadine 10 mg capsule Take by mouth daily. ??? metroNIDAZOLE (METROCREAM) 0.75 % cream Apply 1 application topically 2 times daily. Use a thinlayer to affected areas after washing ??? sulfacetamide sodium, Acne, (KLARON) 10 % lotion Apply 1 application topically daily. OBJECTIVE: Height 170.2 cm (67), weight 63 kg (139 lb). General: No acute distress. Alert, fully oriented, pleasant, conversant. HEENT: Conjunctivae/corneas clear. Sclerae anicteric. Mucus membranes moist; oropharynx clear. Neck supple, no cervical lymphadenopathy. Lungs: Clear to auscultation bilaterally. Heart: Regular rate and rhythm, S1, S2 present, no murmur Abdomen: Soft, non-tender, non-distended. Extremities: Extremities without cyanosis or edema. Skin: No rashes or lesions. No skin thickening. No nail pitting or onycholysis. Normal nailfolds. Musculoskeletal: General: No diffuse tenderness. Spine: No significant tenderness. Appropriate range of motion. Shoulder: No synovitis/effusion. Appropriate range of motion. Elbow: No synovitis/effusion. Appropriate range of motion. Wrist: No synovitis or effusion. Appropriate range of motion. Hand: No synovitis or effusion. Appropriate range of motion. Hips: No synovitis or effusion. Appropriate range of motion. Knee: No synovitis or effusion. Appropriate range of motion. Ankle: No synovitis or effusion. Appropriate range of motion. Foot: No synovitis or effusion. Appropriate range of motion. Neuro: 5/5 strength throughout upper and lower extremities. Notes light touch feels different on left lateral lower leg compared to right. Labs: External labs review notable for: Normal CBCD, CMP, CRP, urine protein Lab Results Component Value Date OLIVIA Positive (A) 06/27/2022 ANAT1P 1:80 Speckled 06/27/2022 Latest Reference Range & Units 06/05/22 11:23 Lyme AB Negative Negative Imaging: no relevant imaging IMPRESSION / PLAN: Ms. Annie Waterman is a 46 y.o. female with Raynaud's Paresthesia Positive OLIVIA Polyarthralgia Raynaud's primary, present since teenager and no digital ulceration. Discussed treatment options including conservative measures and medication such as CCBs. She can follow-up with her PCP if it becomes more bothersome. She notes a stiff sensation over dorsum of right hand and right ankle but I do not appreciate skin thickening to suggest systemic sclerosis. Notes polyarthralgia but no evidence of significant degenerative or inflammatory arthritis. Her paresthesias of right upper and lower extremity are of unclear etiology and do not localize though will defer this evaluation to neurology. She notes mild dry mouth in the morning, no dry eye so it is reasonable to check Sjogren's Abs given neuropathic symptoms. Overall, low suspicion for immune mediated inflammatory disease causing this constellation of symptoms. Remainder of plan as below. Other Orders Placed This Visit Procedures ??? Extractable Nuclear Antigen Panel ??? Scl 70 Antibody, IgG, Serum PATIENT INSTRUCTIONS: There are no Patient Instructions on file for this visit. Patient verbalizes understanding and agrees with plan. There are no barriers to understanding/learning. I spent a total of 70 minutes on the date of this encounter meeting with the patient and reviewing documentation/coordinating care as described in the above note. No procedures were performed at the time of the visit. Denae Cassidy MD 11/27/2022 documented in this encounter Plan of Treatment Not on file documented as of this encounter Results * SCL 70 ANTIBODY, IGG, SERUM (11/27/2022 16:20 EST) Scl 70 Ab, IgG, S <0.2 <1.0 (Negative ) U 11/28/2022 17:04 EST ED [facility] Comment: Test Performed by: [facility] [address] [place] [address] Vtc Technician: Jaime Nazario M.D. Ph.D.; CLIA# [id number] Blood VENOUS BLOOD / Unknown Venipuncture / Unknown 11/27/2022 16:20 EST 11/27/2022 16:49 EST Denae Cassidy MD IMMUNOLOGY AND SERO LOGY ORDERABLES ED [facility] [address] [place] [address] * EXTRACTABLE NUCLEAR ANTIGEN PANEL (11/27/2022 16:20 EST) SSA Antibody 2.3 <20.0 Units 11/28/2022 16:14 [facility] Comment: ? Negative: <20.0 Units ? Weak Positive: 20.0 - 39.9 Units ? Moderate Positive: 40.0 - 80.0 Units ? Strong Positive: >80.0 Units Results were obtained with the [employer] QUANTA Lite SS-A LIANE. ??SS-A values obtained with different manufacturers' assay methods may not be used interchangeably. ??The magnitude of the reported IgG levels cannot be correlated to an endpoint titer. SSB Antibody 3.8 <20.0 Units 11/28/2022 16:14 [facility] Comment: ? Negative: <20.0 Units ? Weak Positive: 20.0 - 39.9 Units ? Moderate Positive: 40.0 - 80.0 Units ? Strong Positive: >80.0 Units Results were obtained with the [employer] QUANTA Lite SS-B LIANE. ??SS-B values obtained with different manufacturers' assay methods may not be used interchangeably. ??The magnitude of the reported IgG levels cannot be correlated to an endpoint titer. SM (Guerin) Antibody 2.0 <20.0 Units 11/28/2022 16:14 [facility] Comment: ? Negative: <20.0 Units ? Weak Positive: 20.0 - 39.9 Units ? Moderate Positive: 40.0 - 80.0 Units ? Strong Positive: >80.0 Units Results were obtained with the [employer] QUANTA Lite Sm LIANE. ??Sm values obtained with different manufacturers' assay methods may not be used interchangeably. ??The magnitude of the reported IgG levels cannot be correlated to an endpoint titer. QUALITY SYSTEMS SPECIALIST Antibody 1.2 <20.0 Units 11/28/2022 16:14 EST [facility] Comment: ? Negative: <20.0 Units ? Weak Positive: 20.0 - 39.9 Units ? Moderate Positive: 40.0 - 80.0 Units ? Strong Positive: >80.0 Units Results were obtained with the [employer] Quanta Lite QUALITY SYSTEMS SPECIALIST LIANE. QUALITY SYSTEMS SPECIALIST values obtained with different guest associate's assay methods may not be used interchangeaby. ??The magnitude of the reported IgG levels cannot be be correlated to an endpoint titer. A positive result in the Quanta Lite QUALITY SYSTEMS SPECIALIST LIANE indicates the presence of antibodies reactive with the QUALITY SYSTEMS SPECIALIST/Sm complex but cannot distinguish between anti-Sm and anti-QUALITY SYSTEMS SPECIALIST activity. Blood VENOUS BLOOD / Unknown Venipuncture / Unknown 11/27/2022 16:20 EST 11/27/2022 16:48 EST Denae Cassidy MD IMMUNOLOGY AND SERO LOGY ORDERABLES Performing Organization Address City/State/[facility] Co de Phone Number [facility] [address] [place] [address] documented in this encounter Visit Diagnoses Diagnosis Positive OLIVIA (antinuclear antibody)- Primary Other and unspecified nonspecific immunological findings Paresthesia Disturbance of skin sensation Polyarthralgia Pain in joint, multiple sites Raynaud's disease without gangrene documented in this encounter Care Teams Meat Cutting Block Repairer Relationship Specialty Start Date End Date Nikki Macias MD [address] [place] [address] PCP - General Family Medicine - Primary Care 10/30/22 documented as of this encounter
--- OUTSIDE RECORDS SUMMARY | 2024-05-12 00:21 | XMS_ITS | Encounter Summary ---
Author Organization [facility] Address [address] [place] [address] Care Team Providers Care Supervisor Asphalt Paving Name Role Phone Nikki Macias MD Primary Care Provider Unavailable Encounter Details Date Type Department Care Team (Late st Contact Info) Description 07/01/2022 Lab Requisition [facility] Pathology & Laboratory Medicine - [facility] [address] [place] [address] Dedra Smith, COUNTY AGRICULTURAL AGENT [address] [place] [address] Encounter for other general examination Social History Tobacco Use Types Packs/Day Years Used Date Smoking Tobacco: Never Assessed Sex and Gender Information Value Date Recorded Sex Assigned at Not on file Gender Identity Female 10/30/2022 9:31 EST Sexual Orientation Not on file documented as of this encounter Plan of Treatment Not on file documented as of this encounter Procedures Procedure Name Priority Date/Time Associated Diagnosis Comments PAP TEST Today 06/30/2022 9:30 EDT Encounter for other general examination HPV DNA DETECTION WITH GENOTYPING, PCR Today 06/30/2022 9:30 EDT Encounter for other general examination documented in this encounter Results * HUMAN PAPILLOMAVIRUS (HPV) DETECTION-HIGH RISK TYPES (06/30/2022 9:30 EDT) HPV other High Risk types, PCR Negative Negative 07/03/2022 13:26 EDT [facility] Comment:No E6 or E7 mRNA is detected from HPV types 16,18,31,33,35,39,45,51,52,56,58,59,66, and 68 by reviewer sales mediated amplification. Papanicolaou smear specimen (specimen) CERVIX UTERI STRUCTURE / Unknown 06/30/2022 9:30 EDT 07/02/2022 10:49 EDT Dedra Smith VICKIE MICROBIOLOGY - GE NERAL ORDERABLES [facility] [address] [place] [id number] * PAP TEST (06/30/2022 9:30 EDT) Specimens A. Cervix and/or Endocervix , ThinPrep Imaging System with Manual Evaluation 07/03/2022 13:26 [facility] Specimen Adequacy Satisfactory for Evaluation - transformation zone component present 07/03/2022 13:26 [facility] General Categorization Negative for intraepithelial lesion or malignancy 07/03/2022 13:26 [facility] Attestation . 07/03/2022 13:26 [facility] at 1326 Clinical History SEE BELOW 07/03/20 13:26 [facility] HPV The result for the Human Papillomavirus (HPV) Detection-High Risk Types is Negative. No E6 or E7 mRNA is detected from HPV types 16,18,31,33,35,39 ,45,51,52,56,58,5 9,66, and 68 by reviewer sales mediated amplification.Judit ting was performed on specimen [id number] and was resulted on 07/03/2022 1325 EDT by ROSAS, LAB INSTRUMENT RESULTS IN 07/03/2022 13:26 T [facility] Performing Lab [facility] 07/03/2022 13:26 [facility] Scanned Images 07/03/2022 13:26 [facility] Papanicolaou smear specimen (specimen) CERVIX UTERI STRUCTURE / Unknown 06/30/2022 9:30 EDT 07/01/2022 13:16 EDT Dedra Smith APRN PATHOLOGY ORDERAB LES [facility] [address] [place] [address] documented in this encounter Visit Diagnoses Diagnosis Encounter for other general examination documented in this encounter Care Teams Supervisor Asphalt Paving Relationship Specialty Start Date End Date Nikki Macias MD [address] [place], [place] [address] [address] PCP - General Family Medicine - Primary Care 10/30/22 documented as of this encounter
--- OUTSIDE RECORDS SUMMARY | 2024-05-12 00:21 | XMS_ITS | Encounter Summary ---
Author Organization [facility] Address [address] [place] [address] Care Team Providers Care Conductor/Brakeman Name Role Phone Nikki Macias MD Primary Care Provider Unavailable Encounter Details Date Type Department Care Team (Late st Contact Info) Description 06/27/2022 Lab Requisition [facility] Pathology & Laboratory Medicine - [facility] [address] [place], [place] [address] Outr Resulting Lab, Provider Social History Tobacco [...] Procedure Name Priority Date/Time Associated Diagnosis Comments HIGH SENSITIVITY C-REACTIVE PROTEIN (CARDIOVASCULAR DISEASE) Routine 06/27/2022 10:03 EDT ANTI NUCLEAR AB (OLIVIA), IFA Routine 06/27/2022 10:03 EDT documented in this encounter Results * (ABNORMAL) ANTI NUCLEAR AB (OLIVIA), IFA (06/27/2022 10:03 EDT) OLIVIA Interpretation Positive(A) Negative 06/30/2022 14:24 EDT [facility] OLIVIA Titer and Pattern 1 1:80 Speckled 06/30/2022 14:24 EDT [facility] Blood VENOUS BLOOD / Unknown 06/27/2022 10:03 EDT 06/27/2022 19:11 EDT Narrative [facility] - 06/30/2022 14:24 EDT Results were obtained with the [employer] NOVA Lite HEp-2 OLIVIA Kit by indirect immunofluorescence. Provider Outr Resulting Lab IMMUNOLOGY A ND SEROLOGY ORDERABLES Performing Organization Address [facility] de Phone Number [facility] [address] [place] [address] * HIGH SENSITIVITY C-REACTIVE PROTEIN (CARDIOVASCULAR DISEASE) (06/27/2022 10:03 EDT) High Sensitivity CRP 2.68 See Note mg/L 06/27/2022 19:30 EDT [facility] Comment: Reference Range: ??Low Risk: ? <1.0 mg/L ??Average Risk: ?? 1.0 - 3.0 mg/L ??High Risk: ?>3.0 mg/L ??Indeterminate*: >10.0 mg/L ??*May be an indication of another source of inflammation or infection Blood VENOUS BLOOD / Unknown 06/27/2022 10:03 EDT 06/27/2022 19:11 EDT Provider Outr Resulting Lab CHEMISTRY & BLOOD GAS ORDERABLES Performing Organization Address [facility] de Phone Number [facility] [address] [place] [address] documented in this encounter Visit Diagnoses Not on filedocumented in this encounter Care Teams Conductor/Brakeman Relationship Specialty Start Date End Date Nikki Macias MD [address] [place] [address] PCP - General Family Medicine - Primary Care 10/30/22 documented as of this encounter
--- OUTSIDE RECORDS SUMMARY | 2024-05-12 00:21 | XMS_ITS | Encounter Summary ---
Author Organization [facility] Address [address] [place] [address] Care Team Providers Care Yarn Skeins Examiner Name Role Phone Nikki Macias MD Primary Care Provider Unavailable Encounter Details Date Type Department Care Team (Late st Contact Info) Description 06/05/2022 Lab Requisition [facility] Pathology & Laboratory Medicine - [facility] [address] [place] [address] Outr Resulting Lab, Provider Social History Tobacco [...] Procedure Name Priority Date/Time Associated Diagnosis Comments LYME AB Routine 06/05/2022 11:23 EDT documented in this encounter Results * LYME AB (06/05/2022 11:23 EDT) Lyme Ab Negative Negative 06/06/2022 10:[address] [facility] Blood VENOUS BLOOD / Unknown 06/05/2022 11:23 EDT 06/05/2022 21:40 EDT Provider Outr Resulting Lab IMMUNOLOGY A ND SEROLOGY ORDERABLES [facility] [address] [place] [address] documented in this encounter Visit Diagnoses Not on filedocumented in this encounter Care Teams Yarn Skeins Examiner Relationship Specialty Start Date End Date Nikki Macias MD [address] [place] [address] PCP - General Family Medicine - Primary Care 10/30/22 documented as of this encounter
--- OUTSIDE RECORDS SUMMARY | 2024-05-12 00:21 | XMS_ITS | Encounter Summary ---
Author Organization [facility] Address [address] [place] [address] Care Team Providers Care Platform Builder Name Role Phone Nikki Macias MD Primary Care Provider Unavailable Encounter Details Date Type Department Care Team (Late st Contact Info) Description 11/07/2022 Abstract [facility] [address] [place] [address] Denae Cassidy MD [address] [place] [address], [address] [place] [address] Social History Tobacco Use Types Packs/Day Years [...] on file documented as of this encounter Progress Notes * Vega Olson MA - 11/07/2022 0824 EST Abstraction done. jms documented in this encounter Plan of Treatment Not on file documented as of this encounter Visit Diagnoses Not on filedocumented in this encounter Historical Medications * This list may reflect changes made after this encounter. Medication Sig Dispensed Refills Start Date End Date levonorgestreL (MIRENA) 20 mcg/24 hours (8 yrs) 52 mg IUD 1 Each by intrauterine route continuous implantable. CHOLESTYRAMINE, WITH SUGAR, ORAL Take 368.76 g by mouth daily. sulfacetamide sodium, Acne, (KLARON) 10 % lotion Apply 1 application topically daily. metroNIDAZOLE (METROCREAM) 0.75 % cream Apply 1 application topically 2 times daily. Use a thin layer to affected areas after washing lidocaine (LMX 5) 5 % cream Apply 1 application topically every 4 hours as needed. ivermectin 1 % cream Apply topically daily. loratadine 10 mg capsule Take by mouth daily. 10/14/2021 fluticasone (VERAMYST) 27.5 mcg/actuation nasal spray Instill 27.5 mcg into right nostril daily. 09/14/2021 added in this encounter Care Teams Platform Builder Relationship Specialty Start Date End Date Nikki Macias MD [address] [place] [address] [place] [address] PCP - General Family Medicine - Primary Care 10/30/22 documented as of this encounter
--- OUTSIDE RECORDS SUMMARY | 2024-05-23 02:02 | XMS_ITS | Encounter Summary ---
[place] [address] Care Team Providers Care Temperature Inspector Name Role Phone Nikki Macias MD Primary Care Provider [phone] Encounter Details Date Type Department Care Team [...] on filedocumented in this encounter Care Teams Temperature Inspector Relationship Specialty Start Date End Date Nikki Macias MD [address] [place] [address] PCP - General Family Medicine 02/20/23 documented as of this encounter
--- OUTSIDE RECORDS SUMMARY | 2024-05-23 02:02 | XMS_ITS | Encounter Summary ---
Author Organization [facility] Address [address] [place] [address] Care Team Providers Care Prototype Carpenter Name Role Phone Nikki Macias MD Primary [...] in joint, multiple sites Nikki Macias MD [address] [place] [address] [facility] Rheumatology [address] [place] [address] Referral ID Status Reason Start Date Expiration Date Visits Requested Visits Authorized [id number] Authorization Not Required 1 1 Encounter Details Date Type Department Care Team (Late st Contact Info) Description 11/27/2022 15:00 EST Office Visit [facility] Rheumatology [address] [place] [address] Denae Csasidy MD [address], [address] [place] [phone] Positive OLIVIA (antinuclear antibody) (Primary Dx); Paresthesia; [...] <1.0 (Negative ) U 11/28/2022 17:04 EST [facility] Comment: Test Performed by: [facility] [address] [place] [address] Ice Scraper: Jaime Nazario M.D. Ph.D.; CLIA# [id number] Blood VENOUS BLOOD / Unknown Venipuncture / Unknown 11/27/2022 16:20 EST 11/27/2022 16:49 EST Denae Cassidy MD IMMUNOLOGY AND SERO LOGY ORDERABLES [facility] [address] [place] [address] * EXTRACTABLE NUCLEAR ANTIGEN PANEL (11/27/2022 16:20 EST) SSA Antibody 2.3 <20.0 Units 11/28/2022 16:14 [facility] Comment: ? Negative: <20.0 Units ? Weak Positive: 20.0 - 39.9 Units ? Moderate Positive: 40.0 - 80.0 Units ? Strong Positive: >80.0 Units Results were obtained with the [employer] QUANTA Lite SS-A LIANE. ??SS-A values obtained with different manufacturers' assay methods may not be used interchangeably. ??The magnitude of the reported IgG levels cannot be correlated to an endpoint titer. SSB Antibody 3.8 <20.0 Units 11/28/2022 16:14 [facility] Comment: ? Negative: <20.0 Units ? Weak Positive: 20.0 - 39.9 Units ? Moderate Positive: 40.0 - 80.0 Units ? Strong Positive: >80.0 Units Results were obtained with the [employer] QUANTA Lite SS-B LIANE. ??SS-B values obtained with different manufacturers' assay methods may not be used interchangeably. ??The magnitude of the reported IgG levels cannot be correlated to an endpoint titer. SM (Guerin) Antibody 2.0 <20.0 Units 11/28/2022 16:14 [facility] Comment: ? Negative: [...] cannot be correlated to an endpoint titer. CLASSIFICATION OFFICER Antibody 1.2 <20.0 Units 11/28/2022 16:14 EST [facility] Comment: ? Negative: <20.0 Units ? Weak Positive: 20.0 - 39.9 Units ? Moderate Positive: 40.0 - 80.0 Units ? Strong Positive: >80.0 Units Results were obtained with the [employer] Quanta Lite CLASSIFICATION OFFICER LIANE. CLASSIFICATION OFFICER values obtained with different surgical elastic knitter's assay methods may not be used interchangeaby. ??The magnitude of the reported IgG levels cannot be be correlated to an endpoint titer. A positive result in the Quanta Lite CLASSIFICATION OFFICER LIANE indicates the presence of antibodies reactive with the CLASSIFICATION OFFICER/Sm complex but cannot distinguish between anti-Sm and anti-CLASSIFICATION OFFICER activity. Blood VENOUS BLOOD / Unknown Venipuncture / Unknown 11/27/2022 16:20 EST 11/27/2022 16:48 EST Denae Cassidy MD IMMUNOLOGY AND SERO LOGY ORDERABLES Performing Organization Address City/State/[facility] Co de Phone Number [facility] [address] [place] [address] documented in this encounter Visit Diagnoses Diagnosis Positive OLIVIA (antinuclear antibody)- Primary Other and unspecified nonspecific immunological findings Paresthesia Disturbance of skin sensation Polyarthralgia Pain in joint, multiple sites Raynaud's disease without gangrene documented in this encounter Care Teams Prototype Carpenter Relationship Specialty Start Date End Date Nikki Macias MD [address] [place] [address] PCP - General Family Medicine - Primary Care 10/30/22 documented as of this encounter
--- OUTSIDE RECORDS SUMMARY | 2024-05-23 02:02 | XMS_ITS | Referral Summary ---
Author Organization [facility] Address [address] [place] [address] Care Team Providers Care Maintenance Of Way Foreman Name Role Phone Nikki Macias MD Primary [...] of Treatment Not on file Care Teams Maintenance Of Way Foreman Relationship Specialty Start Date End Date Nikki Macias MD [address] [place] [address] [address] [place] [address] PCP - General Family Medicine - Primary Care 10/30/22
--- OUTSIDE RECORDS SUMMARY | 2024-05-23 02:02 | XMS_ITS | Encounter Summary ---
Author Organization [facility] Address [address] [place] [address] Care Team Providers Care Global Project Manager Name Role Phone Nikki Macias MD Primary Care Provider Unavailable Encounter Details Date Type Department Care Team (Late st Contact Info) Description 06/27/2022 Lab Requisition [facility] Pathology & Laboratory Medicine - [facility] [address] [place], [place] [address] Outr Resulting Lab, Provider Social History Tobacco [...] OLIVIA Interpretation Positive(A) Negative 06/30/2022 14:24 EDT [facility] OLIVIA Titer and Pattern 1 1:80 Speckled 06/30/2022 14:24 EDT [facility] Blood VENOUS BLOOD / Unknown 06/27/2022 10:03 EDT 06/27/2022 19:11 EDT Narrative [facility] - 06/30/2022 14:24 EDT Results were obtained with the [employer] NOVA Lite HEp-2 OLIVIA Kit by indirect immunofluorescence. Provider Outr Resulting Lab IMMUNOLOGY A ND SEROLOGY ORDERABLES Performing Organization Address [facility] de Phone Number [facility] [address] [place] [address] * HIGH SENSITIVITY C-REACTIVE PROTEIN (CARDIOVASCULAR DISEASE) (06/27/2022 10:03 EDT) High Sensitivity CRP 2.68 See Note mg/L 06/27/2022 19:30 EDT [facility] Comment: Reference Range: ??Low Risk: ? <1.0 mg/L ??Average Risk: ?? 1.0 - 3.0 mg/L ??High Risk: ?>3.0 mg/L ??Indeterminate*: >10.0 mg/L ??*May be an indication of another source of inflammation or infection Blood VENOUS BLOOD / Unknown 06/27/2022 10:03 EDT 06/27/2022 19:11 EDT Provider Outr Resulting Lab CHEMISTRY & BLOOD GAS ORDERABLES Performing Organization Address [facility] de Phone Number [facility] [address] [place] [address] documented in this encounter Visit Diagnoses Not on filedocumented in this encounter Care Teams Global Project Manager Relationship Specialty Start Date End Date Nikki Macias MD [address] [place] [address] PCP - General Family Medicine - Primary Care 10/30/22 documented as of this encounter
--- OUTSIDE RECORDS SUMMARY | 2024-05-23 02:02 | XMS_ITS | Encounter Summary ---
Author Organization [facility] Address [address] [place] [address] Care Team Providers Care Pump Oiler Name Role Phone Nikki Macias MD Primary Care Provider Unavailable Encounter Details Date Type Department Care Team (Late st Contact Info) Description 07/01/2022 Lab Requisition [facility] Pathology & Laboratory Medicine - [facility] [address] [place] [address] Dedra Smith, JBOSS ARCHITECT [address] [address] Encounter for other general examination [...] types, PCR Negative Negative 07/03/2022 13:[address] [facility] Comment:No E6 or E7 mRNA is detected from HPV types 16,18,31,33,35,39,45,51,52,56,58,59,66, and 68 by cpht mediated amplification. Papanicolaou smear specimen (specimen) CERVIX UTERI STRUCTURE / Unknown 06/30/2022 9:30 EDT 07/02/2022 10:49 EDT Dedra Smith VICKIE MICROBIOLOGY - GE NERAL ORDERABLES [facility] [address] [place] [address] * PAP TEST (06/30/2022 9:30 EDT) Specimens A. Cervix and/or Endocervix , ThinPrep Imaging System with Manual Evaluation 07/03/2022 13:26 [facility] Specimen Adequacy Satisfactory for Evaluation - transformation zone component present 07/03/2022 13:26 [facility] General Categorization Negative for intraepithelial lesion or malignancy 07/03/2022 13:26 [facility] Attestation . 07/03/2022 13:26 [facility] at 1326 Clinical History SEE BELOW 07/03/20 13:26 [facility] HPV The result for the Human Papillomavirus (HPV) Detection-High Risk Types is Negative. No E6 or E7 mRNA is detected from HPV types 16,18,31,33,35,39 ,45,51,52,56,58,5 9,66, and 68 by cpht mediated amplification.Judit ting was performed on specimen [id number] and was resulted on 07/03/2022 1325 EDT by ROSAS, LAB INSTRUMENT RESULTS IN 07/03/2022 13:[address] [facility] Performing Lab [facility] 07/03/2022 13:26 [facility] Scanned Images 07/03/2022 13:26 [facility] Papanicolaou smear specimen (specimen) CERVIX UTERI STRUCTURE / Unknown 06/30/2022 9:30 EDT 07/01/2022 13:16 EDT Dedra Smith APRN PATHOLOGY ORDERAB LES [facility] [address] [place] [address] documented in this encounter Visit Diagnoses Diagnosis Encounter for other general examination documented in this encounter Care Teams Pump Oiler Relationship Specialty Start Date End Date Nikki Macias MD [address] [place], [place] [address] [place] [address] PCP - General Family Medicine - Primary Care 10/30/22 documented as of this encounter
--- OUTSIDE RECORDS SUMMARY | 2024-05-23 02:02 | XMS_ITS | Clinical Summary ---
Author Organization [facility] Address [facility] [place] [address] Care Team Providers Care Sales Agent Financial Report Service Name Role Phone Nikki Macias MD Primary Care Provider [phone] Allergies Active Allergy Reactions Criticality Noted Date Comments Ragweed Pollen 06/03/2023 Medications Medication Sig Dispensed Refills Start Date End Date Status fluticasone (VERAMYST) 27.5 mcg/actuation [place], Suspension 2 sprays by Nasal route daily. [...] - Influenza standard series) 06/19/2024 Care Teams Sales Agent Financial Report Service Relationship Specialty Start Date End Date Nikki Macias MD [address] [place] [address] PCP - General Family Medicine 02/20/23
--- OUTSIDE RECORDS SUMMARY | 2024-05-23 02:02 | XMS_ITS | Encounter Summary ---
Author Organization [facility] Address [address] [place] [address] Care Team Providers Care Hand Bookbinder Name Role Phone Nikki Macias MD Primary Care Provider Unavailable Encounter Details Date Type Department Care Team (Late st Contact Info) Description 02/10/2023 Lab Requisition [facility] Pathology & Laboratory Medicine - [facility] [address] [place] [address] Outr Resulting Lab, Provider Social History Tobacco [...] 61.3 55.8 - 66.1 % 02/11/2023 13:10 [facility] Albumin g/dL 4.0 3.6 - 5.2 g/dL 02/11/2023 13:10 [facility] Alpha-1 % 3.7 2.9 - 4.9 % 02/11/2023 13:10 [facility] Alpha-1 g/dL 0.20 0.15 - 0.40 g/dL 02/11/2023 13:10 [facility] Alpha-2 % 8.6 7.1 - 11.8 % 02/11/2023 13:10 [facility] Alpha-2 g/dL 0.60 0.50 - 1.00 g/dL 02/11/2023 13:10 [facility] Beta % 9.6 8.4 - 13.1 % 02/11/2023 13:10 [facility] Beta g/dL 0.60 0.60 - 1.20 g/dL 02/11/2023 13:10 [facility] Gamma % 16.8 11.1 - 18.8 % 02/11/2023 13:10 [facility] Gamma g/dL 1.10 0.60 - 1.60 g/dL 02/11/2023 13:10 [facility] SPEP Comment No apparent monoclonal protein seen on serum electrophoresis 02/11/2023 13:10 [facility] Comment:See scanned/suppleme ntary report. Total Protein 6.5 6.3 - 8.2 g/dL 02/11/2023 13:10 [facility] Blood VENOUS BLOOD / Unknown 02/10/2023 9:47 EDT 02/10/2023 21:07 EDT Provider Outr Resulting Lab CHEMISTRY & BLOOD GAS ORDERABLES Performing Organization Address [facility] Co de Phone Number [facility] [address] [place] [address] * PROTEIN, TOTAL (02/10/2023 9:47 EDT) Blood VENOUS BLOOD / Unknown 02/10/2023 9:47 EDT 02/10/2023 21:07 EDT Provider Outr Resulting Lab CHEMISTRY & BLOOD GAS ORDERABLES Performing Organization Address [facility] Co de Phone Number [facility] [address] [place] [address] documented in this encounter Visit Diagnoses Not on filedocumented in this encounter Care Teams Hand Bookbinder Relationship Specialty Start Date End Date Nikki Macias MD [address] [place] [address] PCP - General Family Medicine - Primary Care 10/30/22 documented as of this encounter
--- OUTSIDE RECORDS SUMMARY | 2024-05-23 02:02 | XMS_ITS | Encounter Summary ---
Author Organization [facility] Address [address] [place] [address] Care Team Providers Care Mortgage Loan Processor Name Role Phone Nikki Macias MD Primary Care Provider Unavailable Encounter Details Date Type Department Care Team (Late st Contact Info) Description 11/07/2022 Abstract [facility] Rheumatology [address] [place] [address] Denae Cassidy MD [address] [place] [address], [facility] [address] [place] [address] Social History Tobacco Use Types [...] 09/14/2021 added in this encounter Care Teams Mortgage Loan Processor Relationship Specialty Start Date End Date Nikki Macias MD [address] [place] [address] [address] [place] [address] PCP - General Family Medicine - Primary Care 10/30/22 documented as of this encounter
--- OUTSIDE RECORDS SUMMARY | 2024-05-23 02:02 | XMS_ITS | Encounter Summary ---
Author Organization [facility] Address [address] [place] [id number] Care Team Providers Care Auto Body Repairer Fiberglass Name Role Phone Nikki Macias MD Primary Care Provider Unavailable Encounter Details Date Type Department Care Team (Late st Contact Info) Description 11/27/2022 16:[address] [facility] - Outpatient Phlebotomy Drawing [address] [place] [address] Lab, [facility] Op Phlebotomy Paresthesia; Positive OLIVIA (antinuclear antibody) [...] <1.0 (Negative ) U 11/28/2022 17:04 EST [facility] Comment: Test Performed by: [facility] [address] [place] [address] Director Mobile: Jaime Nazario M.D. Ph.D.; CLIA# [id number] Blood VENOUS BLOOD / Unknown Venipuncture / Unknown 11/27/2022 16:20 EST 11/27/2022 16:49 EST Denae Cassidy MD IMMUNOLOGY AND SERO LOGY ORDERABLES Performing Organization Address City/State/[facility] Co de Phone Number [facility] [address] [place] [address] * EXTRACTABLE NUCLEAR ANTIGEN PANEL (11/27/2022 16:20 EST) Pathologist [facility] SSA Antibody 2.3 <20.0 Units 11/28/2022 16:14 [facility] Comment: ? Negative: <20.0 Units ? Weak Positive: 20.0 - 39.9 Units ? Moderate Positive: 40.0 - 80.0 Units ? Strong Positive: >80.0 Units Results were obtained with the [employer] QUANTA Lite SS-A LIANE. ??SS-A values obtained with different manufacturers' assay methods may not be used interchangeably. ??The magnitude of the reported IgG levels cannot be correlated to an endpoint titer. SSB Antibody 3.8 <20.0 Units 11/28/2022 16:14 [facility] Comment: ? Negative: <20.0 Units ? Weak Positive: 20.0 - 39.9 Units ? Moderate Positive: 40.0 - 80.0 Units ? Strong Positive: >80.0 Units Results were obtained with the [employer] QUANTA Lite SS-B LIANE. ??SS-B values obtained with different manufacturers' assay methods may not be used interchangeably. ??The magnitude of the reported IgG levels cannot be correlated to an endpoint titer. SM (Guerin) Antibody 2.0 <20.0 Units 11/28/2022 16:14 [facility] Comment: ? Negative: <20.0 Units ? Weak Positive: 20.0 - 39.9 Units ? Moderate Positive: 40.0 - 80.0 Units ? Strong Positive: >80.0 Units Results were obtained with the [employer] L[employer] Sm LIANE. ??Sm values obtained with different manufacturers' assay methods may not be used interchangeably. ??The magnitude of the reported IgG levels cannot be correlated to an endpoint titer. BUSINESS SYSTEMS CONSULTANT Antibody 1.2 <20.0 Units 11/28/2022 16:14 [facility] Comment: ? Negative: <20.0 Units ? Weak Positive: 20.0 - 39.9 Units ? Moderate Positive: 40.0 - 80.0 Units ? Strong Positive: >80.0 Units Results were obtained with the [employer] BUSINESS SYSTEMS CONSULTANT LIANE. BUSINESS SYSTEMS CONSULTANT values obtained with different security systems specialist's assay methods may not be used interchangeaby. ??The magnitude of the reported IgG levels cannot be be correlated to an endpoint titer. A positive result in the [employer] BUSINESS SYSTEMS CONSULTANT LIANE indicates the presence of antibodies reactive with the BUSINESS SYSTEMS CONSULTANT/Sm complex but cannot distinguish between anti-Sm and anti-BUSINESS SYSTEMS CONSULTANT activity. Blood VENOUS BLOOD / Unknown Venipuncture / Unknown 11/27/2022 16:20 EST 11/27/2022 16:48 EST Denae Cassidy MD IMMUNOLOGY AND SERO LOGY ORDERABLES [facility] [address] [place] [address] documented in this encounter Visit Diagnoses Diagnosis Paresthesia Disturbance of skin sensation Positive OLIVIA (antinuclear antibody) Other and unspecified nonspecific immunological findings documented in this encounter Care Teams Auto Body Repairer Fiberglass Relationship Specialty Start Date End Date Nikki Macias MD [facility] [place] [address] PCP - General Family Medicine - Primary Care 10/30/22 documented as of this encounter
--- OUTSIDE RECORDS SUMMARY | 2024-05-23 02:02 | XMS_ITS | Encounter Summary ---
Author Organization [facility] Address [address] [place] [address] Care Team Providers Care Shot Blast Equipment Operator Name Role Phone Nikki Macias MD Primary Care Provider Unavailable Encounter Details Date Type Department Care Team (Late st Contact Info) Description 06/05/2022 Lab Requisition [facility] Pathology & [facility] Medicine - [facility] [address] [place] [address] Outr Resulting Lab, Provider Social History Tobacco [...] Lyme Ab Negative Negative 06/06/2022 10:47 EDT [facility] Blood VENOUS BLOOD / Unknown 06/05/2022 11:23 EDT 06/05/2022 21:40 EDT Provider Outr Resulting Lab IMMUNOLOGY A ND SEROLOGY ORDERABLES [facility] [address] [place] [address] documented in this encounter Visit Diagnoses Not on filedocumented in this encounter Care Teams Shot Blast Equipment Operator Relationship Specialty Start Date End Date Nikki Macias MD [address] [place] [address] PCP - General Family Medicine - Primary Care 10/30/22 documented as of this encounter
--- OUTSIDE RECORDS SUMMARY | 2024-05-23 02:02 | XMS_ITS | Clinical Summary ---
Author Organization [facility] Address [address] [place] [address] Care Team Providers Care Felt Finishing Supervisor Name Role Phone Nikki Macias MD Primary [...] Vaccine (2022-24 season) 2023, 01/23/2021 Care Teams Felt Finishing Supervisor Relationship Specialty Start Date End Date Nikki Macias MD [address] [place] [address] [place] [address] PCP - General Family Medicine - Primary Care 10/30/22
--- OUTSIDE RECORDS SUMMARY | 2024-05-23 02:02 | XMS_ITS | Encounter Summary ---
Author Organization [facility] Address [facility] [place] [address] Care Team Providers Care Property Handler Name Role Phone Nikki Macias MD Primary Care Provider [phone] Reason for Visit * Consultation (Routine) - Closed Specialty Diagnoses / Procedures Referred By Princess prieto Referred To Contact Dermatology Diagnoses Disorder of skin and subcutaneous tissue Karri Leigh, DNP [address] [place] [address] [facility] [address] [place] [address] Referral ID Status Reason Start Date Expiration Date V isits Requested Visits Authorized [id number] Closed Consult, Test & Treat PCP Updated and/or Approved 02/20/2023 02/20/2024 6 6 Encounter Details Date Type Department Care Team (Late st Contact Info) Description 06/03/2023 8:45 AM EDT Office Visit Dermatology at [facility] [address] [place] [id number] Claudia Velazquez MD [facility] [address] [place] [address] Multiple benign melanocytic nevi of upper and [...] pathology Scribe attestation: EILEEN Ramon and Alycia aMce have performed the documentation for this encounter in the presence of and acting as a scribe for Claudia Velazquez MD. I performed the above scribed service and agree with the accuracy of the documentation in this encounter. Reviewed and signed by: Claudia Velazquez MD Dermatology [facility] * Claudia Velazquez MD - 06/03/2023 8:45 AM EDT Sent my Miaoyushang message with results. NTD further documented in [...] AM EDT 06/03/2023 10:03 AM EDT Narrative [facility] - 06/03/2023 10:03 AM EDT Specimen requisition ordered. ??Separate Pathology report to follow Claudia Velazquez MD PATHOLOGY/CYTOLOGY ORDERABLES [facility] [place] [address] * Specimen to Pathology (06/03/2023 10:03 AM EDT) AP Specimen 06/03/2023 10:0 3 AM EDT 06/03/2023 10:03 AM EDT Narrative [facility] - 06/03/2023 10:03 AM EDT Specimen requisition ordered. ??Separate Pathology report to follow Claudia Velazquez MD PATHOLOGY/CYTOLOGY ORDERABLES [facility] [place] [address] * Specimen to Pathology (06/03/2023 10:03 AM EDT) AP Specimen 06/03/2023 10:0 3 AM EDT 06/03/2023 10:03 AM EDT Narrative [facility] - 06/03/2023 10:03 AM EDT Specimen requisition ordered. ??Separate Pathology report to follow Claudia Velazquez MD PATHOLOGY/CYTOLOGY ORDERABLES [facility] [place] [address] * Surgical Pathology Report (06/03/2023 9:28 AM EDT) Final Diagnosis [id number] ? Location: [facility] The signing pathologist has [...] Verified: ??06/10/2023 13:07 ??Dermatopatholo gist Performed at: ??[facility] Dept. of Pathology, [place] [address] Cost Specialist: Eddie Coyne MD, FCAP, ??CLIA Certificate: [id number] SPECIMEN(S) SUBMITTED A - left medial upper [...] labeled C1. ??nrl 06/10/2023 1:07 PM EDT [facility] SPECIMEN FROM SKIN / Unknown 06/03/2023 9:28 AM EDT 06/03/2023 9:28 AM EDT SPECIMEN FROM SKIN / Unknown 06/03/2023 9:28 AM EDT 06/03/2023 9:28 AM EDT SPECIMEN FROM SKIN / Unknown 06/03/2023 9:28 AM EDT 06/03/2023 9:28 AM EDT Claudia Velazquez MD PATHOLOGY/CYTOLOGY ORDERABLES [facility] [place] [address] [facility] [place] [address] documented in this encounter Visit Diagnoses Diagnosis Multiple benign melanocytic nevi of upper and lower extremities and trunk Neoplasm of unspecified behavior of bone, soft tissue, and skin Pruritus Unspecified pruritic disorder Folliculitis Other specified disease of hair and hair follicles documented in this encounter Care Teams Property Handler Relationship Specialty Start Date End Date Nikki Macias MD [address] [place] [address] PCP - General Family Medicine 02/20/23 documented as of this encounter
--- OUTSIDE RECORDS SUMMARY | 2024-05-23 02:02 | XMS_ITS | Encounter Summary ---
Author Organization [facility] [place] [address] Care Team Providers Care Fruit Farmworker Name Role Phone Nikki Macias MD Primary Care Provider [phone] Reason for Referral * Consultation (Routine) - Closed Specialty Diagnoses / Procedures Referred By Princess prieto Referred To Contact Dermatology Diagnoses Disorder of skin and subcutaneous tissue Karri Leigh DNP [facility] [place] [address] [facility] [address] [place] [address] Referral ID Status Reason Start Date Expiration Date V isits Requested Visits Authorized [id number] Closed Consult, Test & Treat PCP Updated and/or Approved 02/20/2023 02/20/2024 6 6 Encounter Details Date Type Department Care Team (Late st Contact Info) Description 02/20/2023 Transcribe Orders eDH Incoming Referrals [phone] Karri Leigh DNP [facility] [address] [place], [place] [id number] Disorder of skin and subcutaneous tissue Social [...] tissue documented in this encounter Care Teams Fruit Farmworker Relationship Specialty Start Date End Date Nikki Macias MD [address] [place] [address] [place] [address] PCP - General Family Medicine 02/20/23 documented as of this encounter
--- NOTE | 2024-05-23 06:52 | DI.MAMMO_ITS ---
Exam(s) MAMMO SCREENING EXAM: MAMMO SCREENING CLINICAL HISTORY: screening,Z12.39,R92.0 DENSE BREASTS. TECHNIQUE: Bilateral full field digital CC and MLO mammographic images were obtained with 3D tomosyn thesis and utilizing computer aided detection (CAD). COMPARISON: Prior mammograms were reviewed. This patient had an excisional biopsy of a fibroadenoma in the right breast approximately 22 years ag o FINDINGS: The fibroglandular tissue pattern of the breasts is again noted be dense, this decreasing the sensiti vity of the mammogram for finding hidden underlying lesions. In the left breast on the MLO view there is a superficially located nodule medially which is most pro bably a skin mole . There are no new spiculated masses nor malignant appearing microcalcification groups. There is no significant architectural distortion nor skin thickening-retraction. IMPRESSION: Dense bilateral fibroglandular tissue. No obvious radiographic evidence of malignancy. Medially loc ated skin mole left breast noted BI-RADS Category 2 - Benign Findings Breast Density - Category C - Heterogeneously dense Breast density Category C or D implies that the patient has dense breast tissue. Dense breast tissue can make it harder to find cancer on a mammogram. Dense breast tissue is also associated with an incr eased risk of breast cancer. This information about the result of the mammogram report was provided to the patient to raise their awareness. Use this report when you speak with the patient about their risks for breast cancer, which includes their family history. At that time, you may recommend additional screening tests (Ultrasoun d or MRI) as these tests may add significant information. A negative radiographic report should not delay biopsy if a dominant or clinically suspicious mass is present. Up to ten percent of cancers are not identified on mammography. A negative report may reinforce clinical impression. Adenosis and dense breasts may obscure an underlying neoplasm. False positive reports average 6 to 10%. Patient will receive a letter notifying them of these results.
== END ==
PROVIDERS: PCP Family Medicine; Visit Provider Family Medicine
DX: Z12.39 Encounter for other screening for malignant neoplasm of breast (principal); R92.30 Dense breasts, unspecified; Z12.31 Encounter for screening mammogram for malignant neoplasm of breast; D24.2 Benign neoplasm of left breast; R92.333 Mammographic heterogeneous density, bilateral breasts
CPT/HCPCS: 77063; 77067

== ENCOUNTER 2025-02-20 02:47 | Outpatient (CLI) | payer BC, SELFPAY ==
[2025-02-20 12:25] LABS: Abs Immature Grans 0.01 10^3/uL (0.0-0.06); Absolute Basophil Count 0.05 10^3/uL (0.0-0.2); Absolute Eosinophil Count 0.15 10^3/uL (0.0-0.7); Absolute Lymphocyte Count 1.87 10^3/uL (1.2-3.4); Absolute Monocyte Count 0.48 10^3/uL (0.1-0.8); Absolute Neutrophil Count 3.18 10^3/uL (1.2-6.7); Basophils % 0.9 %; Eosinophils % 2.6 %; HCT 39.9 % (36.0-46.0); HGB 13.5 g/dL (11.2-15.7); Immature Grans % 0.2 %; Lymphocytes % 32.6 %; MCH 30.9 pg (27.0-33.0); MCHC 33.8 % (32.0-36.0); MCV 91 fL (80-95); MPV 9.9 fL (8.0-11.0); Monocytes % 8.4 %; Neutrophils % 55.3 %; Platelet Count 228 10^3/uL (130-400); RBC 4.37 10^6/uL (3.93-5.22); RDW 13.2 % (11.7-14.6); RDW-SD 44.2 fL; WBC 5.74 10^3/uL (4.4-10.8)
[2025-02-20 13:13] LABS: ALT 15 U/L (14-59); AST 14 U/L (15-37); Albumin 3.6 g/dL (3.4-5.0); Alkaline Phosphatase 77 U/L (46-116); Anion Gap 9.1 mmol/L (3-11); BUN 11 mg/dL (7-18); Bilirubin, Total 0.8 mg/dL (0.2-1.0); CO2 26.9 mmol/L (21.0-32.0); CREATININE 0.7 mg/dL (0.55-1.02); Calcium 8.5 mg/dL (8.5-10.1); Chloride 107 mmol/L (98-107); Estimated GFR 107.28 (mL/min/1.73m2); Glucose 107 mg/dL (74-106); Potassium 3.5 mmol/L (3.5-5.1); Sodium 143 mmol/L (136-145); TSH (W/Ref FT4) 1.46 uIU/mL (0.36-3.74); Total Protein 6.8 g/dL (6.4-8.2); Vitamin B12 322 pg/mL (193-986)
== END 2025-02-20 02:48 | disposition home or self-care (01) ==
PROVIDERS: PCP Family Medicine; Visit Provider Family Medicine
DX: R42 Dizziness and giddiness (principal)
CPT/HCPCS: 36415; 80053; 82607; 84443; 85025

== ENCOUNTER 2025-07-11 11:52 | Outpatient (REF) | payer BC, SELFPAY | END 2025-07-11 11:53 | disposition home or self-care (01) | LOC: LBN 11:52 | PROVIDERS: PCP Family Medicine; Visit Provider Nurse Practitioner Women's Health | DX: N76.0 Acute vaginitis (principal) | CPT/HCPCS: 87480; 87510; 87660 ==

== ENCOUNTER 2025-07-19 03:32 | Outpatient (CLI) | payer BC, SELFPAY ==
--- NOTE | 2025-07-19 08:55 | DI.MAMMO_ITS ---
Exam(s) MAMMO SCREENING EXAM: MAMMO SCREENING CLINICAL HISTORY: screening TECHNIQUE: Mammograms were interpreted according to the usual protocol including computer analysis with CAD system, tomosynthesis and C-view imaging. COMPARISON: 2018 through 2023 FINDINGS: The breasts are composed of heterogeneously dense fibroglandular densities, Breast Density category C. No suspicious masses or suspicious microcalcifications are seen. No skin thickening or abnormal axillary lymph nodes are seen. There has been no significant change from prior exams. IMPRESSION: BI-RADS Category 1, Negative mammogram. Yearly screening mammography is recommended. Breast Density: Category C - The breasts are heterogeneously dense, which may obscure small masses. Breast density Category C or D implies that the patient has dense breast tissue. Dense breast tissue can make it harder to find cancer on a mammogram. Dense breast tissue is also associated with an increased risk of breast cancer. This information about the result of the mammogram report was provided to the patient to raise their awareness. Use this report when you speak with the patient about their risks for breast cancer, which includes their family history. At that time, you may recommend additional screening tests (Ultrasound or MRI) as these tests may add significant information. A negative radiographic report should not delay biopsy if a dominant or clinically suspicious mass is present. Up to ten percent of cancers are not identified on mammography. A negative report may reinforce clinical impression. Adenosis and dense breasts may obscure an underlying neoplasm. False positive reports average 6 to 10%.
== END 2025-07-19 03:52 ==
LOC: DI 03:32
PROVIDERS: PCP Family Medicine; Visit Provider Nurse Practitioner Women's Health
DX: Z12.31 Encounter for screening mammogram for malignant neoplasm of breast (principal); R92.323 Mammographic fibroglandular density, bilateral breasts
CPT/HCPCS: 77063; 77067